=== PATIENT | female | born 1985 | race Caucasian/White ===

== ENCOUNTER 2021-04-28 17:43 | Emergency (ER) | payer OTHER, SELFPAY ==
[2021-04-28 18:05] VITALS: BP 143/82; PULSE 65; RESP 16; TEMP 36.7; O2SAT 99; BMI 33.3
--- NOTE | 2021-04-28 19:14 | ED_ITS ---
HPI - General Adult General Chief complaint: Upper Respiratory Symptoms Stated complaint: sore throat Time Seen by Provider: 04/28/21 19:12 Source: patient Mode of arrival: ambulatory Limitations: no limitations History of Present Illness HPI narrative: Patient presents to ED for sore throat for 1 week. Patient denies any fever, chills, coughing, chest pain, shortness of breath, dizziness, weakness, drooling, or change in voice. Patient denies any runny eyes and runny nose. Related Data Home Medications Medication Instructions Recorded Confirmed cholecalciferol (vitamin D3) 50 50 mcg PO DAILY 01/03/21 mcg (2,000 unit) capsule ibuprofen 800 mg tablet 800 mg PO TID 01/03/21 levothyroxine 137 mcg tablet 0 mcg PO 01/03/21 Previous Rx's Medication Instructions Recorded sumatriptan succinate 25 mg tablet 25 mg PO ONCE PRN #10 tab 01/03/21 Allergies Allergy/AdvReac Type Severity Reaction Status Date / Time No Known Allergies Allergy Verified 04/28/21 19:44 Review of Systems Review of Systems: Yes all other systems are reviewed and are negative Constitutional: Constitutional: Reports as per HPI and Reports no additional constitutional complaints Eyes: Eyes: Reports as per HPI and Reports no additional eye complaints ENT: Reports system reviewed and no additional complaints, except as documented, Reports as per HPI and Reports sore throat Cardiovascular: Cardiovascular: Reports as per HPI and Reports no additional cardiovascular complaints Respiratory: Respiratory: Reports as per HPI and Reports no additional respiratory complaints Gastrointestinal: Gastrointestinal: Reports as per HPI and Reports no additional gastrointestinal complaints Genitourinary: Genitourinary: Reports no additional female genitourinary complaints and Reports as per HPI Musculoskeletal: Musculoskeletal: Reports no additional musculoskeletal complaints and Reports as per HPI Neurologic: Reports system reviewed and no additional complaints, except as documented and Reports as per HPI Psychiatric: Psychiatric: Reports no additional psychiatric complaints and Reports as per HPI [facility] Past Medical History Medical History (Updated 04/29/21 @ 00:01 by Gopal Mtz) No known health problems Social History Social History Advance Directives: No Advance Directives Information Provided: No Physical Exam Vital Signs: Vital Signs: Last Vital Signs Temp 98.1 F 04/28/21 18:05 Pulse 65 04/28/21 18:05 Resp 16 04/28/21 18:05 BP 143/82 H 04/28/21 18:05 Pulse Ox 99 04/28/21 18:05 Body Mass Index 33.3 Const: General: cooperative, healthy appearing, comfortable, no acute distress, well developed, alert, awake and Physically active Orienta tion/consciousness: patient oriented x3 HENMT: Head: Yes normal to inspection, Yes No palpable skull fracture present, Yes normocephalic, Yes atraumatic and No abrasion Throat: Yes posterior oropharynx normal, Yes tonsils normal and Yes uvula midline Eyes: General: appearance normal, both eyes and all related structures Neck: Neck: Yes normal visual inspection, Yes full ROM, Yes no lymphadenopathy, Yes no meningeal signs, Yes trachea midline, Yes supple and No tender Chest: Chest palpation & inspection: normal inspection of the chest and normal palpation of entire chest wall Resp: Effort & Inspection: normal respiratory effort and able to speak in complete sentences Auscultation: clear to auscultation bilaterally Cardio: Jugular venous distension: no JVD Heart sounds: S1 normal heart sound present and S2 normal heart sound present GI: Inspection: Yes normal to inspection and No abdominal wall ecchymosis Palpation (GI): Soft to palpation, not firm, nontender, no guarding and not rigid : General: No CVA tenderness and Yes no CVA tenderness Back/Spine/Pelvis: Back: no CVA tenderness, No CVA tenderness and No back tenderness Skin: General skin exam: no rashes or lesions noted and elasticity normal Neuro: General: patient oriented x3, gait normal, no meningeal signs and CN's II-XI intact bilaterally Cranial nerves: Yes CN's II-XII intact bilaterally Extrem: General: Yes normal to inspection and Yes full ROM Psych: Appearance: grossly normal, well kempt and not disheveled Course Reevaluation(s) Reevaluation #2: Patient will have rapid strep and COVID swab ordered. Patient any distress. Time: 19:37 Reevaluation #3: Rapid strep COVID-19 swab negative. Viral pharyngitis. Patient is safe for discharge Time: 20:01 Medical Decision Making MDM Narrative Medical decision making narrative: Viral pharyngitis Lab Data Labs: Lab Results 04/28/21 04/28/21 Range/Units 19:16 19:16 COVID-19 (PAULA) Negative (Negative) COVID-19 Clin Com See Note S. pyogenes GrpA CARMEN Negative (Negative) Discharge Plan Discharge Clinical Impression: Acute viral pharyngitis Patient Disposition: Home, Self-Care Instructions: Pharyngitis (ED) Additional Instructions: Your COVID swab and strep test came back negative. You can take [id number] cepacol lozanges for pain relief. Return to the ED immediately for drooling, shortness of breath, neck pain, neck swelling, chest pain, shortness of breath, fever, chills, change in voice, headache, dizziness, or any other concerning symptoms. You can take [id number] Motrin or Aleve for pain relief Prescriptions: No Action levothyroxine 137 mcg tablet 0 mcg PO RF: 0 cholecalciferol (vitamin D3) 50 mcg (2,000 unit) capsule 50 mcg PO DAILY RF: 0 ibuprofen 800 mg tablet 800 mg PO TID RF: 0 sumatriptan succinate 25 mg tablet 25 mg PO ONCE PRN (Reason: migraine headache) Qty: 10 RF: 0 Interventions: ED Discharge Assessment Last Done: 04/28/21 20:21 Discharge Date/Time: 04/28/21 20:22 Print Language: Indonesian
[2021-04-28 19:45] LABS: Strep A Nucleic Acid Negative (Negative)
[2021-04-28 19:46] LABS: COVID-19 Test Negative (Negative); IDNOW Serial# 9DD0AD1C
== END 2021-04-28 20:22 | disposition home or self-care (01) ==
PROVIDERS: Physician Assistant; Emergency Provider Internal Medicine; PCP Internal Medicine
DX: J02.8 Acute pharyngitis due to other specified organisms (principal); Z20.822 Contact with and (suspected) exposure to COVID-19
CPT/HCPCS: 36415; 87635; 87651; 99283; 99284

== ENCOUNTER 2021-10-28 10:46 | Outpatient (REF) | payer OTHER, SELFPAY ==
--- NOTE | ~2021-10-28 | XR_ITS ---
EXAMINATION: XR ANKLE, RIGHT CLINICAL INFORMATION: Right ankle sprain. COMPARISON: None TECHNIQUE: AP, lateral, and mortise views of the right ankle. FINDINGS: Mild to moderate soft tissue swelling is seen more pronounced medially. The ankle joint and mortise are intact. There is no acute fracture or dislocation. The tarsal bones are normally aligned. There is a very small plantar calcaneal spur. XR/XR ankle RT min 3V IMPRESSION: 1. Mild to moderate soft tissue swelling, more pronounced medially without acute underlying osseous abnormality. 2. Very small degenerative plantar calcaneal spur.
== END 2021-10-28 10:47 | disposition home or self-care (01) ==
LOC: HO.HMGCX 10:46
PROVIDERS: PCP Internal Medicine; Visit Provider Internal Medicine
DX: S93.401A Sprain of unspecified ligament of right ankle, initial encounter (principal); X58.XXXA Exposure to other specified factors, initial encounter; Y93.9 Activity, unspecified; Y92.9 Unspecified place or not applicable; Y99.9 Unspecified external cause status
CPT/HCPCS: 73610

== ENCOUNTER 2022-12-25 18:24 | Emergency (ER) | payer OTHER, SELFPAY ==
[2022-12-25 18:31] VITALS: BP 135/87; PULSE 82; RESP 18; TEMP 36.3; O2SAT 96; BMI 36.6
--- NOTE | 2022-12-25 18:31 | ED_ITS ---
HPI - General Adult General Chief complaint: Back Pain/Injury <Lindsay Cummings CNP - Last Filed: 12/25/22 18:41> Stated complaint: back pain and right side chest pain <Lindsay Cummings CNP - Last Filed: 12/25/22 18:41> Time Seen by Provider: 12/25/22 22:52 <Lindsay Cummings CNP - Last Filed: 12/25/22 18:41> Source: patient <Elías Lindquist MD - Last Filed: 12/25/22 23:22> Mode of arrival: ambulatory <Elías Lindquist MD - Last Filed: 12/25/22 23:22> History of Present Illness HPI narrative: Patient slipped on a wet mat and fell backwards 4 days ago at work , since then complaining of pain in the right upper back no shortness of breath no head injury no loss of consciousness no other injuries <Elías Lindquist MD - Last Filed: 12/25/22 23:22> Related Data Home medications: Home Medications Medication Instructions Recorded Confirmed cholecalciferol (vitamin D3) 50 50 mcg PO DAILY 01/03/21 mcg (2,000 unit) capsule levothyroxine 137 mcg tablet 0 mcg PO 01/03/21 Previous Rx's Medication Instructions Recorded sumatriptan succinate 25 mg tablet 25 mg PO ONCE PRN migraine 01/03/21 headache #10 tabs cyclobenzaprine 10 mg tablet 10 mg PO BEDTIME #14 tabs 12/23/22 meloxicam 15 mg tablet 15 mg PO DAILY #14 tabs 12/23/22 cyclobenzaprine 10 mg tablet 10 mg PO Q8H #20 tabs 12/25/22 ibuprofen 600 mg tablet 600 mg PO Q6H PRN fever or pain 12/25/22 #30 tabs <Lindsay Cummings CNP - Last Filed: 12/25/22 18:41> Allergies/adverse reactions: Allergies Allergy/AdvReac Type Severity Reaction Status Date / Time No Known Allergies Allergy Verified 12/23/22 15:37 <Lindsay Cummings CNP - Last Filed: 12/25/22 18:41> Review of Systems Review of Systems: Yes all other systems are reviewed and are negative <Elías Lindquist MD - Last Filed: 12/25/22 23:22> [facility] Past Medical History Medical History: Medical History No known health problems <Lindsay Cummings MALCOLM - Last Filed: 12/25/22 18:41> Social History Social History: Social History Patient Tobacco Use Status: Never used Tobacco Advance Directives: No <Lindsay Cummings PEARL CUTTER - Last Filed: 12/25/22 18:41> Physical Exam ED Vital Signs: Vital Signs - 24 hr 12/25/22 18:31 Temperature 97.4 F Pulse Rate 82 Respiratory Rate 18 Blood Pressure 135/87 Pulse Oximetry 96 Oxygen Delivery Method Room Air BMI result Body Mass Index 36.6 <Lindsay CummingsMALCOLM - Last Filed: 12/25/22 18:41> Vital Signs - 24 hr 12/25/22 18:31 Temperature 97.4 F Pulse Rate 82 Respiratory Rate 18 Blood Pressure 135/87 Pulse Oximetry 96 Oxygen Delivery Method Room Air BMI result Body Mass Index 36.6 <Elías Lindquist MD - Last Filed: 12/25/22 23:22> Appearance: Alert. Oriented X3. No acute distress. Eyes: PERRLA, No Nystagmus ENT: Pharynx normal. Oral Mucosa moist Neck: Normal inspection. Neck supple. CVS: Normal heart rate and rhythm. Pulses normal. Respiratory: No respiratory distress. Equal air entry bilateral, no wheezing/rales/rhonchi Abdomen: Soft and nontender. Skin: Skin warm and dry. Normal skin color. Normal skin turgor. Extremities: No lower extremity edema. No calf tenderness back: Diffuse upper back tenderness in the right rhomboids Neuro: Oriented X 3. No motor deficit. No sensory deficit. <Elías Lindquist MD - Last Filed: 12/25/22 23:22> Course Course Course Narrative: This is an RME: Additional HPI, ROS, PE not included below will be deferred to primary provider. Patient is a 37-year-old female who presents to the emergency department for evaluation pain. She reports right upper chest pain, with onset 1 week ago after a mechanical fall at work. Diffuse back pain; bilateral upper and lower, no area feeling worse than another x 1 week. Was evaluated at urgent care, 2 days ago, received prescription for cyclobenzaprine and meloxicam with only some relief. Did not take meloxicam today. Pain not worsening, but here because not resolving. Denies URI symptoms, shortness of breath, fevers, chills, nausea, vomiting, dysuria, urinary frequency, leg pain/redness/swelling. Denies possibility of Plan: ketorolac IM <Lindsay Cummings CNP - Last Filed: 12/25/22 18:41> Medications Administered Discontinued Medications Generic Name Dose Route Start Last Admin Trade Name Freq PRN Reason Stop Dose Admin Ketorolac Tromethamine 30 mg 12/25/22 18:40 12/25/22 22:02 Ketorolac Tromethamine 30 Mg/Ml Vial IM 12/25/22 18:41 30 mg ONCE ONE Administration <Lindsay Cummings CNP - Last Filed: 12/25/22 18:41> Medications Administered Discontinued Medications Generic Name Dose Route Start Last Admin Trade Name Freq PRN Reason Stop Dose Admin Ketorolac Tromethamine 30 mg 12/25/22 18:40 12/25/22 22:02 Ketorolac Tromethamine 30 Mg/Ml Vial IM 12/25/22 18:41 30 mg ONCE ONE Administration <Elías Lindquist MD - Last Filed: 12/25/22 23:22> Medical Decision Making Medical Decision Making MDM Narrative: Patient status post mechanical fall with upper back contusion discharge patient home on ibuprofen and Flexeril <Elías Lindquist MD - Last Filed: 12/25/22 23:22> Discharge Plan Discharge Clinical Impression: Thoracic back pain <Lindsay Cummings CNP - Last Filed: 12/25/22 18:41> Patient Disposition: Home, Self-Care <Lindsay Cummings CNP - Last Filed: 12/25/22 18:41> Instructions: Thoracic Pain (ED) <Lindsay Cummings CNP - Last Filed: 12/25/22 18:41> Additional Instructions: Take pain medication as prescribed Ice pack Rest <Lindsay Cummings CNP - Last Filed: 12/25/22 18:41> Prescriptions: New cyclobenzaprine 10 mg tablet 10 mg PO Q8H Qty: 20 0RF ibuprofen 600 mg tablet 600 mg PO Q6H PRN (Reason: fever or pain) Qty: 30 0RF No Action levothyroxine 137 mcg tablet 0 mcg PO cholecalciferol (vitamin D3) 50 mcg (2,000 unit) capsule 50 mcg PO DAILY sumatriptan succinate 25 mg tablet 25 mg PO ONCE PRN (Reason: migraine headache) Qty: 10 0RF Rx Instructions: may take a second dose if no relief after one hour. Do not take more than 4 tablets per day. meloxicam 15 mg tablet 15 mg PO DAILY Qty: 14 0RF cyclobenzaprine 10 mg tablet 10 mg PO BEDTIME Qty: 14 0RF <Lindsay Cummings CNP - Last Filed: 12/25/22 18:41> Stand Alone Forms: Work/School Release <Lindsay Cummings CNP - Last Filed: 12/25/22 18:41>
[2022-12-25] MEDS: Ketorolac Tromethamine 30 MG/ML VIAL IM (22:02)
[2022-12-25] MEDS: Cyclobenzaprine HCl 10 MG TABLET PO (23:40)
[2022-12-25 23:47] VITALS: BP 109/69; PULSE 79; RESP 16; O2SAT 98
--- NOTE | 2022-12-25 23:50 | PC.NURSE ---
Pt a&o, no sob or chest pain, Pt medicated per Mar, Reviewed discharge instructions with pt. pt verbalized understanding.
== END 2022-12-25 23:51 | disposition home or self-care (01) ==
PROVIDERS: Emergency Provider Internal Medicine; PCP Internal Medicine
DX: M54.50 Low back pain, unspecified (principal); M54.6 Pain in thoracic spine; Z79.899 Other long term (current) drug therapy
CPT/HCPCS: 96372; 99284; J1885

== ENCOUNTER 2023-12-29 10:56 | Outpatient (AMB) | payer OTHER, SELFPAY ==
--- NOTE | 2023-12-29 11:01 | AM.OFFWIN_ITS ---
Intake Vital Signs 12/29/23 11:02 Weight 223 lb BP 110/80 Blood Pressure Location Lt brachial Position Sitting Pulse 72 Pulse Source Pulse Oximeter Pulse Oximetry (%) 99 Oxygen Delivery Method Room Air Intake Visit Reasons: EP RT side upper body/arm pain (lobby) Intake Note: Patient here for severe upper back pain which radiates to the shoulder and chest which started 3 days ago. Patient Tobacco Use Status: Never used Tobacco Allergies No Known Allergies Allergy (Verified 12/29/23 11:41) Medication List - Last Reconciled 12/29/23 by JADON Steve cholecalciferol (vitamin D3) 50 mcg PO DAILY ibuprofen 600 mg PO Q6H PRN levothyroxine 0 mcg PO Do you need a note to return to daycare/school/sports/work: No HPI HPI Comments History of Present Illness Details Patient is a 38-year-old female in today for a sick visit. She states that for the past several days she has developed symptoms of right shoulder pain, and right hand pain. Denies trauma to the area. States that she does sleep on her right side but has not for the past week. Has no history of these symptoms. Denies chest pain, shortness a breath, dizziness, numbness, nausea, vomiting, diarrhea. [facility] Medical History No known health problems Social History Patient Tobacco Use Status: Never used Tobacco Review of Systems Const All systems reviewed & are unremarkable except as noted in HPI and below ENT Reports neck pain Musc Reports arthralgias (Right hand), Reports neck pain and Reports stiffness Physical Exam Vital Signs: Last Vital Signs Pulse 72 12/29/23 11:02 BP 110/80 12/29/23 11:02 Pulse Ox 99 12/29/23 11:02 Oxygen Delivery Method Room Air 12/29/23 11:02 Vital signs reviewed stable Const Other: Appearance: Alert.? Oriented X3.? No acute distress.? Head: Normocephalic, atraumatic, Neck: Normal inspection.? Neck supple.? CVS: Normal heart rate and rhythm.? Pulses normal.? Respiratory: No respiratory distress.? Breath sounds normal.? Skin: Skin warm and dry.? Normal skin color.? Normal skin turgor.? Extremities: No lower extremity edema.? No calf ttp. 5/5 strength to bilateral upper and lower extremities. + Tenderness and edema 1st and 2nd metacarpal right hand. Back: No midline tenderness, no C-spine tenderness, full range of motion, + right trapezius tenderness Neuro: Oriented X 3.? No motor deficit.? No sensory deficit. CN 2-12 intact Assessment & Plan Assessment & Plan (1) Right hand pain: Comment: Will obtain x-ray. Patient will be given meloxicam to be taken as directed. Patient could also utilize ice and rest. Code(s): M79.641 - Pain in right hand Plan: Take your medications as prescribed. If you were prescribed antibiotics today, it is important that you take your medication to their entirety, do not skip any doses, do not finish them early. Follow-up with your primary care provider this week. Return to the emergency department with new or worsening symptoms. Such as fevers, chills, chest pain, shortness of breath, nausea, vomiting, dizziness, headache, vision changes, lethargy In case of emergency call 911 (2) Trapezius strain: Comment: Patient given meloxicam and cyclobenzaprine to be taken as directed. Code(s): S46.819A - Strain of other muscles, fascia and tendons at shoulder and upper arm level, unspecified arm, initial encounter Qualifiers: Encounter type: initial encounter Laterality: right Qualified Code(s): S46.811A - Strain of other muscles, fascia and tendons at shoulder and upper arm level, right arm, initial encounter Plan: Take your medications as prescribed. If you were prescribed antibiotics today, it is important that you take your medication to their entirety, do not skip any doses, do not finish them early. Follow-up with your primary care provider this week. Return to the emergency department with new or worsening symptoms. Such as fevers, chills, chest pain, shortness of breath, nausea, vomiting, dizziness, headache, vision changes, lethargy In case of emergency call 911 Plan Follow-up with PCP Medications: New cyclobenzaprine Take only before bedtime. 5 mg PO BEDTIME PRN 7 tabs 0RF muscle spasm meloxicam Do not combine with other NSAIDS 15 mg PO DAILY PRN 14 tabs 0RF pain Discontinued ibuprofen Discontinued Reason: Doctor's Order 600 mg PO Q6H PRN 30 tabs 0RF fever or pain Coding Level of Care Code Est Pt Level 3 (54509) Diagnoses Right hand pain M79.641 Strain of right trapezius muscle, initial encounter S46.811A Encounter type: initial encounter Laterality: right
[2023-12-29 11:02] VITALS: BP 110/80; PULSE 72; O2SAT 99
== END 2023-12-29 12:42 | disposition home or self-care (01) ==
PROVIDERS: PCP Internal Medicine; Visit Provider Nurse Practitioner Primary Care
DX: M79.641 Pain in right hand (principal); S46.811A Strain of other muscles, fascia and tendons at shoulder and upper arm level, right arm, initial encounter
CPT/HCPCS: 99213

== ENCOUNTER 2023-12-29 11:24 | Outpatient (REF) | payer OTHER, SELFPAY ==
--- NOTE | ~2023-12-29 | XR_ITS ---
EXAMINATION: XR HAND, RIGHT CLINICAL INFORMATION: Right hand pain. COMPARISON: Right hand radiographs dated 05/07/2009. TECHNIQUE: PA, lateral, and oblique views of the right hand. FINDINGS: The bones and soft tissues are normal. No fracture. Alignment is anatomic. Joint spaces are maintained. No erosions or soft tissue calcifications. XR/XR hand RT min 3V IMPRESSION: Unremarkable examination.
== END 2023-12-29 11:25 | disposition home or self-care (01) ==
LOC: HO.HMGCX 11:24
PROVIDERS: Visit Provider Nurse Practitioner Primary Care
DX: M79.641 Pain in right hand (principal)
CPT/HCPCS: 73130

== ENCOUNTER 2024-01-01 12:42 | Emergency (ER) | payer OTHER, SELFPAY ==
--- NOTE | ~2024-01-01 | XR_ITS ---
EXAMINATION: XR CHEST CLINICAL INFORMATION: Right sided chest pain. COMPARISON: Chest radiograph dated 07/15/2009. TECHNIQUE: 2 views of the chest were obtained. FINDINGS: Heart size is normal. The lungs are clear. There is no pleural effusion or pneumothorax. No acute osseous abnormality. XR/XR chest 2V IMPRESSION: No acute cardiopulmonary disease.
[2024-01-01 13:18] VITALS: BP 149/97; PULSE 81; RESP 18; TEMP 36.7; O2SAT 99; BMI 32.3
--- NOTE | 2024-01-01 13:21 | ED.CHESTPAIN ---
HPI - Chest Pain General Chief Complaint: Back Pain/Injury Stated Complaint: R side CP pain/Back pain/R arm pain Time Seen by Provider: 01/01/24 15:13 History of Present Illness HPI narrative: Patient complains of right trapezius and some mild right lower neck pain which radiates to the upper chest area on the right side, there is no other chest pain there is no shortness of breath there is no exertional symptoms, pain is continuous and worse with movement, there is no shortness breath no difficulty breathing no radiation of the pain no loss of sensation no muscle weakness no changes to bowel or bladder, no skin rash Related Data Home Medications Medication Instructions Recorded Confirmed cholecalciferol (vitamin D3) 50 50 mcg PO DAILY 01/03/21 12/29/23 mcg (2,000 unit) capsule levothyroxine 137 mcg tablet 0 mcg PO 01/03/21 12/29/23 Previous Rx's Medication Instructions Recorded cyclobenzaprine 5 mg tablet 5 mg PO BEDTIME PRN muscle spasm 12/29/23 #7 tabs meloxicam 15 mg tablet 15 mg PO DAILY PRN pain #14 tabs 12/29/23 ibuprofen 600 mg tablet 600 mg PO Q6H PRN pain #20 tabs 01/01/24 oxycodone 5 mg tablet 5 mg PO Q6H PRN pain #14 tabs 01/01/24 Allergies Allergy/AdvReac Type Severity Reaction Status Date / Time No Known Allergies Allergy Verified 01/01/24 13:24 [facility] Past Medical History Source: nursing notes reviewed Medical History No known health problems Social History Social History Patient Tobacco Use Status: Never used Tobacco Advance Directives: No Advance Directives Information Provided: No Physical Exam Vital Signs: Vital Signs: Last Vital Signs Temp 98.4 F 01/01/24 14:50 Pulse 65 01/01/24 14:50 Resp 16 01/01/24 14:50 BP 142/75 H 01/01/24 14:50 Pulse Ox 100 01/01/24 14:50 O2 Del Method Room Air 01/01/24 14:50 BMI result Body Mass Index 32.3 General appearance no acute distress Head is normocephalic atraumatic The neck had very mild right lateral tenderness, the most tender area is the right trapezius, there is no focal bony tenderness The skin of the right neck and trapezius is all normal no redness no rash The chest is clear to auscultation full symmetric equal breath sounds The chest wall is non tender Heart no murmur Abdomen soft nontender Extremities full range motion x4 including right upper extremity which has full range of motion in the shoulder and all joints in his neurovascular intact distal with 5/5 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 Patient is a 38-year-old female who presents emergency department for evaluation of Right upper back pain that radiates into the right upper chest liver on with onset 1 week ago without any precipitating injury. Denies shortness of breath, nausea, vomiting, abdominal pain, dysuria, constipation, diarrhea, fevers, chills. Was seen at clinic 4 days ago, RX's muscle relaxer and an arthritis medicine (after RX of hand), but denies any relief. Plan: labs, urinalysis CBC chemistry troponin all normal, hCG negative Urinalysis was contaminated, patient had no symptoms of urinary tract infection in his urinating normally , no dysuria no frequency no burning no nausea vomiting or fever Chest x-ray was normal, no pneumothorax no widened aorta EKG was a normal sinus rhythm with a rate of 67, no acute ST changes no acute ischemic changes Patient with likely strained trapezius muscle is discharged with analgesics Medical Decision Making Lab Data 01/01/24 13:35 01/01/24 13:34 Labs: Lab Results 01/01/24 01/01/24 01/01/24 Range/Units 13:34 13:35 15:03 WBC 10.0 (4.8-10.8) X10*3/uL RBC 4.67 (4.20-5.50) X10*6/uL Hgb 13.5 (12.0-16.0) g/dl Hct 39.9 (37.0-47.0) % MCV 85.4 (80.0-98.0) fL MCH 28.9 (27.0-33.0) pg MCHC 33.8 (31.0-35.0) g/dl RDW 13.2 (11.0-16.0) % Plt Count 300 (160-400) X10*3/uL MPV 9.8 (9.4-12.3) fL Immature Gran % (Auto) 1.1 H (0.0-0.4) % Neut % (Auto) 60.7 (45-73) % Lymph % (Auto) 27.0 (20-40) % [place] % (Auto) 7.5 (2-11) % Eos % (Auto) 3.0 (0-4) % Baso % (Auto) 0.7 (0-2) % Lymph # (Auto) 2.7 (1.2-4.9) X10*3/uL [place] # (Auto) 0.8 (0.1-1.2) X10*3/uL Eos # (Auto) 0.3 (0.0-0.4) X10*3/uL Baso # (Auto) 0.1 (0.0-0.2) X10*3/uL Abs Immat Gran (auto) 0.11 H (0.00-0.03) X10*3/uL Absolute Neuts (auto) 6.1 (2.0-8.3) x10*3/uL Absolute Nucleated RBC 0.000 (0.0-0.012) X10*3/uL Nucleated RBC % (auto) 0.0 (0.0-0.2) /100WBC Sodium 139 (135-145) mmol/L Potassium 4.0 (3.3-5.1) mmol/L Chloride 107 (96-108) mmol/L Carbon Dioxide 22 (22-29) mmol/L Anion Gap 14 (12-20) BUN 12 (9-16) mg/dL Creatinine 0.78 (0.5-1.4) mg/dL Estim Creat Clear Calc 110.9 Estimated GFR > 60 Random Glucose 90 (60-115) mg/dL Calcium 9.3 (8.4-10.2) mg/dL Total Bilirubin 0.4 (0.0-1.0) mg/dL AST 9 (5-31) U/L ALT 7 (0-31) U/L Alkaline Phosphatase 89 (39-117) U/L Troponin I High Sens < 2.7 (<3.5-17.0) ng/L Total Protein 7.6 (6.5-8.0) g/dL Albumin 4.1 (3.5-5.0) g/dL Lipase 21 (8-78) U/L Beta HCG, Quant < 2 mIU/mL Urine Color Yellow Urine Appearance Cloudy Urine pH 5.5 (5.0-9.0) Ur Specific [place] 1.010 (1.005-1.025) Urine Protein Negative (Neg-Trace) mg/dL Urine Glucose (UA) Negative (Negative) mg/dL Urine Ketones Negative (Negative) mg/dL Urine Blood Negative (Negative) Urine Nitrite Negative (Negative) Ur Leukocyte Esterase Large (3+) H (Negative) Urine RBC 0-2 (0-2) /HPF Urine WBC 21-50 H (0-5) /HPF Ur Squamous Epith Cells 3-5 (0-2) /HPF Urine Bacteria 2+ (None Seen) Hyaline Casts 0-2 (0-2) /LPF Discharge Plan Discharge Clinical Impression: Trapezius strain Patient Disposition: Home, Self-Care Additional Instructions: Pain is likely from strained right trapezius muscle Lab tests were normal including heart test , test was negative EKG was normal Chest x-ray was normal Use medications as needed, oxycodone is narcotics so no driving for 6 hours after taking it can cause drowsiness or dizziness Follow with primary doctor Massage, chiropractor are sometimes very helpful Return any time if worse Prescriptions: New oxycodone 5 mg tablet 5 mg PO Q6H PRN (Reason: pain) Qty: 14 0RF Rx Instructions: Partial Fill upon patient request. ibuprofen 600 mg tablet 600 mg PO Q6H PRN (Reason: pain) Qty: 20 0RF No Action levothyroxine 137 mcg tablet 0 mcg PO cholecalciferol (vitamin D3) 50 mcg (2,000 unit) capsule 50 mcg PO DAILY meloxicam 15 mg tablet 15 mg PO DAILY PRN (Reason: pain) Qty: 14 0RF Rx Instructions: Do not combine with other NSAIDS cyclobenzaprine 5 mg tablet 5 mg PO BEDTIME PRN (Reason: muscle spasm) Qty: 7 0RF Rx Instructions: Take only before bedtime.
--- NOTE | 2024-01-01 13:24 | ECG_ITS ---
Test Reason : CP Blood Pressure : / mmHG Vent. Rate : 067 BPM Atrial Rate : 067 BPM P-R Int : 188 ms QRS Dur : 086 ms QT Int : 402 ms P-R-T Axes : 018 038 014 degrees QTc Int : 424 ms Normal sinus rhythm Normal ECG When compared with ECG of 19-AUG-2018 19:39, No significant change was found Referred By: Lindsay Cummings Electronically Signed By:SUKI GRULLON MD
[2024-01-01 13:38] LABS: MANUAL DIFF FLAG NO
[2024-01-01 13:41] LABS: Basophils Absolute Auto 0.1 X10*3/uL (0.0-0.2); Basophils Percent Auto 0.7 % (0-2); Eosinophils Absolute Auto 0.3 X10*3/uL (0.0-0.4); Hematocrit 39.9 % (37.0-47.0); Hemoglobin 13.5 g/dl (12.0-16.0); Imm Gran Abs Auto 0.11 X10*3/uL (0.00-0.03); Imm Gran Pct Auto 1.1 % (0.0-0.4); Lymphocytes Absolute Auto 2.7 X10*3/uL (1.2-4.9); Mean Corpuscular HGB Conc 33.8 g/dl (31.0-35.0); Mean Corpuscular Hemoglobin 28.9 pg (27.0-33.0); Mean Corpuscular Volume 85.4 fL (80.0-98.0); Mean Platelet Volume 9.8 fL (9.4-12.3); Monocytes Absolute Auto 0.8 X10*3/uL (0.1-1.2); Monocytes Percent Auto 7.5 % (2-11); Neutrophils Absolute Auto 6.1 x10*3/uL (2.0-8.3); Neutrophils Percent Auto 60.7 % (45-73); Platelet Count 300 X10*3/uL (160-400); Red Blood Count 4.67 X10*6/uL (4.20-5.50); Red Cell Distribution Width 13.2 % (11.0-16.0)
[2024-01-01 14:01] LABS: Alanine Aminotransferase 7 U/L (0-31); Albumin Level 4.1 g/dL (3.5-5.0); Alkaline Phosphatase 89 U/L (39-117); Anion Gap 14 (12-20); Aspartate Amino Transferase 9 U/L (5-31); Bilirubin Total 0.4 mg/dL (0.0-1.0); Blood Urea Nitrogen 12 mg/dL (9-16); Calcium 9.3 mg/dL (8.4-10.2); Carbon Dioxide 22 mmol/L (22-29); Chloride 107 mmol/L (96-108); Creatinine Clr Calc Pharmacy 110.9; Estimated Glomerular Filt Rate > 60; Glucose Random 90 mg/dL (60-115); Lipase 21 U/L (8-78); Sodium 139 mmol/L (135-145); Total Protein 7.6 g/dL (6.5-8.0)
[2024-01-01 14:03] LABS: Troponin-I High Sensitivity < 2.7 ng/L (<3.5-17.0)
[2024-01-01 14:04] LABS: HCG Quantitative < 2 mIU/mL
[2024-01-01 14:50] VITALS: BP 142/75; PULSE 65; RESP 16; TEMP 36.9; O2SAT 100
[2024-01-01 15:13] LABS: Appearance Urine Cloudy; Color Urine Yellow; Glucose Urine UA Negative (Negative); Leukocyte Esterase Urine Large (3+) (Negative); Nitrite Urine Negative (Negative); PH 5.5 (5.0-9.0); UMIC TRIGGER UACC YES; Urine Blood Negative (Negative); Urine Ketones Negative (Negative); Urine Protein Negative (Neg-Trace)
[2024-01-01 15:20] LABS: Bacteria Urine 2+ (None Seen); Hyaline Casts Urine 0-2 /LPF (0-2); UACC Culture Trigger YES; WBC Urine 21-50 /HPF (0-5)
[2024-01-01 15:22] LABS: RBC Urine 0-2 /HPF (0-2)
[2024-01-01 18:13] VITALS: BP 0/0; PULSE 0; RESP 0; TEMP -17.7; TEMP 0
== END 2024-01-01 18:13 | disposition home or self-care (01) ==
PROVIDERS: Nurse Practitioner Family; Emergency Provider Emergency Medicine
DX: S46.811A Strain of other muscles, fascia and tendons at shoulder and upper arm level, right arm, initial encounter (principal); X58.XXXA Exposure to other specified factors, initial encounter; Y93.9 Activity, unspecified; Y92.9 Unspecified place or not applicable; Y99.9 Unspecified external cause status
CPT/HCPCS: 36415; 71046; 80053; 81001; 83690; 84484; 84702; 85025; 87086; 93005; 99283

== ENCOUNTER → 2024-01-01 13:24 | Outpatient (BNV) | payer OTHER, SELFPAY | PROVIDERS: Emergency Provider Emergency Medicine; Visit Provider Internal Medicine Cardiovascular Disease | DX: R07.9 Chest pain, unspecified (principal) | CPT/HCPCS: 93010 ==

== ENCOUNTER 2024-07-09 19:22 | Emergency (ER) | payer MEDICAID, SELFPAY ==
--- NOTE | ~2024-07-09 | XR_ITS ---
EXAMINATION: XR CHEST CLINICAL INFORMATION: Chest pain for one week COMPARISON: Chest radiograph dated 01/01/2024 TECHNIQUE: 2 views of the chest were obtained. FINDINGS: Multiple wires project over the mediastinum and right hilum. Low lung volumes. No significant abnormality is noted involving the heart, lungs, mediastinum, bony thorax or soft tissues. XR/XR chest 2V IMPRESSION: No acute cardiopulmonary process. Electronically signed by: Dolores Fitch MD 07/09/2024 08:44 PM EDT
--- NOTE | 2024-07-09 19:23 | ECG_ITS ---
Test Reason : CHEST PAIN Blood Pressure : / mmHG Vent. Rate : 069 BPM Atrial Rate : 069 BPM P-R Int : 190 ms QRS Dur : 080 ms QT Int : 404 ms P-R-T Axes : 023 030 019 degrees QTc Int : 432 ms Normal sinus rhythm Normal ECG When compared with ECG of 01-JAN-2024 13:29, No significant change was found Referred By: Generic ED Physician Electronically Signed By:YAHAIRA OATES
[2024-07-09 19:39] VITALS: BP 129/75; PULSE 75; RESP 16; TEMP 36.7; O2SAT 99; BMI 38.6
--- NOTE | 2024-07-09 19:39 | ED_ITS ---
HPI - General Adult General Chief complaint: Chest Pain Stated complaint: chest pain Time Seen by Provider: 07/09/24 20:48 Source: patient Mode of arrival: ambulatory Limitations: no limitations History of Present Illness ED Provider: simon DILLON narrative: Patient otherwise healthy complaining of pain in the left 2nd intercostal space for last few days gets worse with movement and palpation Related Data Home Medications ?Medication ?Instructions ?Recorded ?Confirmed cholecalciferol (vitamin D3) 50 50 mcg PO DAILY 01/03/21 12/29/23 mcg (2,000 unit) capsule levothyroxine 137 mcg tablet 0 mcg PO 01/03/21 12/29/23 Previous Rx's ?Medication ?Instructions ?Recorded cyclobenzaprine 5 mg tablet 5 mg PO BEDTIME PRN muscle spasm 12/29/23 #7 tabs meloxicam 15 mg tablet 15 mg PO DAILY PRN pain #14 tabs 12/29/23 ibuprofen 600 mg tablet 600 mg PO Q6H PRN pain #20 tabs 01/01/24 oxycodone 5 mg tablet 5 mg PO Q6H PRN pain #14 tabs 01/01/24 ibuprofen 600 mg tablet 600 mg PO Q6H PRN fever or pain 07/09/24 #30 tabs tramadol 50 mg tablet 50 mg PO Q6H PRN pain #20 tabs 07/09/24 Allergies Allergy/AdvReac Type Severity Reaction Status Date / Time No Known Allergies Allergy Verified 07/09/24 19:43 Review of Systems 2 Review of Systems: Yes all other systems are reviewed and are negative PMFSH Past Medical History Medical History No known health problems Social History Social History Patient Tobacco Use Status: Never used Tobacco Advance Directives: No Advance Directives Information Provided: No Do you have a plan to hurt others: No Plan Physical Exam ED Vital Signs: Vital Signs - 24 hr 07/09/24 19:39 Temperature 98.1 F Pulse Rate 75 Respiratory Rate 16 Blood Pressure 129/75 Pulse Oximetry 99 Oxygen Delivery Method Room Air BMI result Body Mass Index 38.6 Appearance: Alert. Oriented X3. No acute distress. ENT: Pharynx normal. Oral Mucosa moist Neck: Normal inspection. Neck supple. CVS: Normal heart rate and rhythm. Pulses normal. Respiratory: No respiratory distress. Equal air entry bilateral, no wheezing/rales/rhonchi left 2nd intercostal space tenderness to palpation Abdomen: Soft and nontender. Bowel sounds are present, no mass palpable, no CVA tenderness Skin: Skin warm and dry. Normal skin color. Normal skin turgor. Extremities: No lower extremity edema. No calf tenderness Neuro: Oriented X 3. Course Course Course Narrative: This is a rapid medical exam performed by Mukund Warren NP: Additional HPI, ROS, PE not included below will be deferred to primary provider. Patient is a 38-year-old female presenting to the ED with complaint of left upper chest pain for the past week. States pain is intermittent. Plan: EKG, labs,CXR Medications Administered Discontinued Medications Generic Name Dose Route Start Last Admin Trade Name Freq PRN Reason Stop Dose Admin Ibuprofen 600 mg 07/09/24 21:30 07/09/24 21:37 Ibuprofen 600 Mg Tablet PO 07/09/24 21:31 600 mg ONCE ONE Administration Tramadol HCl 50 mg 07/09/24 21:30 07/09/24 21:38 Tramadol Hcl 50 Mg Tablet PO 07/09/24 21:31 50 mg ONCE ONE Administration Medical Decision Making Medical Decision Making [facility] Narrative: Patient with left costal cartilage tenderness clinically costochondritis labs were stable chest negative will discharge patient home Differential Diagnosis Differential Diagnoses: The differential diagnosis associated with the presentation includes Costochondritis/history Lab Data [facility] Lab Attestation statement: I reviewed the patient's lab results. 07/09/24 19:40 07/09/24 19:40 Labs: Lab Results 07/09/24 Range/Units 19:40 WBC 11.9 H (4.8-10.8) X10*3/uL RBC 4.29 (4.20-5.50) X10*6/uL Hgb 12.5 (12.0-16.0) g/dl Hct 36.8 L (37.0-47.0) % MCV 85.8 (80.0-98.0) fL MCH 29.1 (27.0-33.0) pg MCHC 34.0 (31.0-35.0) g/dl RDW 13.1 (11.0-16.0) % Plt Count 331 (160-400) X10*3/uL MPV 9.7 (9.4-12.3) fL Immature Gran % (Auto) 0.8 H (0.0-0.4) % Neut % (Auto) 62.9 (45-73) % Lymph % (Auto) 26.5 (20-40) % [place] % (Auto) 6.9 (2-11) % Eos % (Auto) 2.4 (0-4) % Baso % (Auto) 0.5 (0-2) % Lymph # (Auto) 3.2 (1.2-4.9) X10*3/uL [place] # (Auto) 0.8 (0.1-1.2) X10*3/uL Eos # (Auto) 0.3 (0.0-0.4) X10*3/uL Baso # (Auto) 0.1 (0.0-0.2) X10*3/uL Abs Immat Gran (auto) 0.10 H (0.00-0.03) X10*3/uL Absolute Neuts (auto) 7.5 (2.0-8.3) x10*3/uL Absolute Nucleated RBC 0.000 (0.0-0.012) X10*3/uL Nucleated RBC % (auto) 0.0 (0.0-0.2) /100WBC Sodium 138 (135-145) mmol/L Potassium 3.9 (3.3-5.1) mmol/L Chloride 105 (96-108) mmol/L Carbon Dioxide 23 (22-29) mmol/L Anion Gap 14 (12-20) BUN 12 (9-16) mg/dL Creatinine 0.86 (0.5-1.4) mg/dL Estim Creat Clear Calc 106.8 Estimated GFR > 60 Random Glucose 96 (60-115) mg/dL Calcium 9.9 D (8.4-10.2) mg/dL Total Bilirubin 0.3 (0.0-1.0) mg/dL AST 14 (5-31) U/L ALT 10 (0-31) U/L Alkaline Phosphatase 88 (39-117) U/L Troponin I High Sens < 2.7 (<3.5-17.0) ng/L Total Protein 7.5 (6.5-8.0) g/dL Albumin 4.1 (3.5-5.0) g/dL Beta HCG, Quant < 2 mIU/mL Independent Interpretation I performed an independent interpretation of an: EKG and Plain X-Ray Interpretation: Normal sinus rhythm heart rate 69 beats per minute normal interval normal axis no acute ST-T changes no acute ischemia Radiology Impression Discussion of test interpretation with radiology: I have reviewed the radiologist's reading. Discharge Plan Discharge Clinical Impression: Acute costochondritis Patient Disposition: Home, Self-Care Instructions: Costochondritis (ED) Additional Instructions: Take pain medication as prescribed Tramadol for severe pain Your chest pain is from inflammation of the cartilage Prescriptions: New tramadol 50 mg tablet 50 mg PO Q6H PRN (Reason: pain) Qty: 20 0RF ibuprofen 600 mg tablet 600 mg PO Q6H PRN (Reason: fever or pain) Qty: 30 0RF No Action oxycodone 5 mg tablet 5 mg PO Q6H PRN (Reason: pain) Qty: 14 0RF Rx Instructions: Partial Fill upon patient request. ibuprofen 600 mg tablet 600 mg PO Q6H PRN (Reason: pain) Qty: 20 0RF levothyroxine 137 mcg tablet 0 mcg PO cholecalciferol (vitamin D3) 50 mcg (2,000 unit) capsule 50 mcg PO DAILY meloxicam 15 mg tablet 15 mg PO DAILY PRN (Reason: pain) Qty: 14 0RF Rx Instructions: Do not combine with other NSAIDS cyclobenzaprine 5 mg tablet 5 mg PO BEDTIME PRN (Reason: muscle spasm) Qty: 7 0RF Rx Instructions: Take only before bedtime. Print Language: Uzbek
[2024-07-09 19:44] LABS: MANUAL DIFF FLAG NO
[2024-07-09 19:46] LABS: Basophils Absolute Auto 0.1 X10*3/uL (0.0-0.2); Basophils Percent Auto 0.5 % (0-2); Eosinophils Absolute Auto 0.3 X10*3/uL (0.0-0.4); Eosinophils Percent Auto 2.4 % (0-4); Hematocrit 36.8 % (37.0-47.0); Hemoglobin 12.5 g/dl (12.0-16.0); Imm Gran Pct Auto 0.8 % (0.0-0.4); Lymphocytes Absolute Auto 3.2 X10*3/uL (1.2-4.9); Lymphocytes Percent Auto 26.5 % (20-40); Mean Corpuscular Hemoglobin 29.1 pg (27.0-33.0); Mean Corpuscular Volume 85.8 fL (80.0-98.0); Mean Platelet Volume 9.7 fL (9.4-12.3); Monocytes Absolute Auto 0.8 X10*3/uL (0.1-1.2); Monocytes Percent Auto 6.9 % (2-11); Neutrophils Absolute Auto 7.5 x10*3/uL (2.0-8.3); Neutrophils Percent Auto 62.9 % (45-73); Platelet Count 331 X10*3/uL (160-400); Red Blood Count 4.29 X10*6/uL (4.20-5.50); Red Cell Distribution Width 13.1 % (11.0-16.0); White Blood Count 11.9 X10*3/uL (4.8-10.8)
[2024-07-09 20:08] LABS: Alanine Aminotransferase 10 U/L (0-31); Albumin Level 4.1 g/dL (3.5-5.0); Alkaline Phosphatase 88 U/L (39-117); Anion Gap 14 (12-20); Aspartate Amino Transferase 14 U/L (5-31); Bilirubin Total 0.3 mg/dL (0.0-1.0); Blood Urea Nitrogen 12 mg/dL (9-16); Calcium 9.9 mg/dL (8.4-10.2); Carbon Dioxide 23 mmol/L (22-29); Chloride 105 mmol/L (96-108); Creatinine Clr Calc Pharmacy 106.8; Estimated Glomerular Filt Rate > 60; Glucose Random 96 mg/dL (60-115); HCG Quantitative < 2 mIU/mL; Potassium 3.9 mmol/L (3.3-5.1); Sodium 138 mmol/L (135-145); Total Protein 7.5 g/dL (6.5-8.0); Troponin-I High Sensitivity < 2.7 ng/L (<3.5-17.0)
[2024-07-09] MEDS: Ibuprofen 600 MG TABLET PO (21:37)
[2024-07-09] MEDS: traMADoL HCL 50 MG TABLET PO (21:38)
[2024-07-09 22:11] VITALS: BP 129/75; PULSE 75; RESP 16; TEMP 36.7; O2SAT 99
== END 2024-07-09 22:11 | disposition home or self-care (01) ==
PROVIDERS: Emergency Provider Internal Medicine
DX: M94.0 Chondrocostal junction syndrome [Tietze] (principal)
CPT/HCPCS: 36415; 71046; 80053; 84484; 84702; 85025; 93005; 99283

== ENCOUNTER 2024-10-04 11:22 | Outpatient (AMB) | payer MEDICAID, SELFPAY ==
[2024-10-04 12:39] VITALS: BP 110/74; PULSE 75; TEMP 37; O2SAT 98; BMI 38.3
--- NOTE | 2024-10-04 12:39 | MHC.OFFWIV ---
Intake Vital Signs 10/04/24 12:39 Height 5 ft 5 in Weight 230 lb BMI 38.3 BP 110/74 Blood Pressure Location Lt brachial Position Sitting Pulse 75 Pulse Source Pulse Oximeter Temp 98.6 F Temp Source Oral Pulse Oximetry (%) 98 Oxygen Delivery Method Room Air Intake Visit Reasons: EP Throat, LT hand, Back Intake Note: Pt is here today for a walk in visit. Pt c/o sore throat and L hand pain. Patient Tobacco Use Status: Never used Tobacco Allergies No Known Allergies Allergy (Verified 10/04/24 12:42) HPI EP Throat, LT hand, Back HPI Details This is a 38 year old female patient who presents to the [place] clinic today with a 3-4 day history of Sore throat and body aches , particularly her back. Reports her teenage son had similar symptoms. He was negative for strep/ COVID/flu. She has been taking ibuprofen and Tylenol with minimal relief. She denies fever or chills. She denies any respiratory symptoms or shortness of breath. She denies any GI symptoms. she also complains of left hand pain and numbness over the last 2-3 months. She has not been able to get established with a PCP for evaluation of this. She is left-hand dominant. 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 She reports pain in her hand and numbness/tingling, particularly in the last 2 digits. [facility] Medical History No known health problems Social History Patient Tobacco Use Status: Never used Tobacco Review of Systems Const All systems reviewed & are unremarkable except as noted in HPI and below Physical Exam Vital Signs: Last Vital Signs Temp 98.6 F 10/04/24 12:39 Pulse 75 10/04/24 12:39 BP 110/74 10/04/24 12:39 Pulse Ox 98 10/04/24 12:39 Oxygen Delivery Method Room Air 10/04/24 12:39 BMI result Body Mass Index 38.3 Const General: cooperative and ill appearing acutely HEENT Head: Yes normal to inspection Ears: hearing grossly normal bilaterally General nose exam: Normal external nose present Face and sinus: Yes normal facial exam Mouth: Normal oral and palatal mucosa present Throat: Yes posterior oropharynx abnormal ( Tonsillar hypertrophy, no erythema or exudate) Neck Neck: Yes no lymphadenopathy Resp Effort & Inspection: normal respiratory effort Auscultation: clear to auscultation bilaterally Cardio Rate: regular rate Rhythm: regular rhythm Skin General skin exam: no rashes or lesions noted Extrem General: Yes capillary refill normal and Yes no clubbing, cyanosis or edema Left upper extremity: hand (pain with making fist on left, +Tinel's sign on left) Details: normal capillary refill, neuromotor exam abnormal and no swelling Psych Appearance: grossly normal Mental Status: mental status grossly normal Speech and movement: Normal speech and movement present Results AMB Rapid Strep AMB Rapid Strep Negative Last Edit by MARIE Bryant on 10/04/24 12:51 Results Reviewed Results Reviewed: Laboratory Last Values Strep Scn Rapid Clinic Negative 10/04/24 12:46 Assessment & Plan Assessment & Plan (1) Viral pharyngitis: Code(s): J02.9 - Acute pharyngitis, unspecified Plan: rapid strep was negative. Reviewed conservative measures for likely viral illness, including [id number] cold / flu medication, throat lozenges and warm/saltwater gargles. also recommended increased hydration, rest, healthy food intake. She is having a lot of back and body aches, and so I will prescribe her a short course of meloxicam, which she has taken previously and done well on. We reviewed indications, use, possible side effects of this medication. If she does not improve with time and conservative measures , or if symptoms worsen/ new symptoms develop, she should return to the clinic for further evaluation. She verbalizes understanding and agrees to plan. Work note provided. (2) Generalized body aches: Code(s): R52 - Pain, unspecified Plan: As above (3) Numbness and tingling in left hand: Code(s): R20.0 - Anesthesia of skin; R20.2 - Paresthesia of skin Plan: Likely CTS. Left hand dominant. 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 Exam consistent with CTS. No PCP at this time. Will refer to ortho at [facility] per patient request. Orders: Orders AMB Rapid Strep Screen Today Tulio Bermudez MD Z13.9 - Encounter for screening, unspecified Referrals Orthopedics Referral JADON Ceron R20.0 - Anesthesia of skin, R20.2 - Paresthesia of skin Medications: New meloxicam 15 mg PO DAILY 7 days 7 tabs 0RF JADON Ceron J06.9 - Acute upper respiratory infection, unspecified, R52 - Pain, unspecified Coding Level of Care Code Est Pt Level 4 (72896) Diagnoses Viral pharyngitis J02.9 Generalized body aches R52 Numbness and tingling in left hand R20.0; R20.2
== END 2024-10-04 13:15 | disposition home or self-care (01) ==
PROVIDERS: Visit Provider Nurse Practitioner Family
DX: J02.9 Acute pharyngitis, unspecified (principal); R52 Pain, unspecified; R20.0 Anesthesia of skin; R20.2 Paresthesia of skin; Z13.9 Encounter for screening, unspecified

== ENCOUNTER → 2024-10-04 11:22 | Outpatient (BNVA) | payer MEDICAID, SELFPAY | DX: J02.9 Acute pharyngitis, unspecified (principal); M79.642 Pain in left hand; M54.9 Dorsalgia, unspecified; R20.0 Anesthesia of skin; R20.2 Paresthesia of skin | CPT/HCPCS: 87880; 99212 ==

== ENCOUNTER 2025-04-10 10:51 | Emergency (ER) | payer OTHER, SELFPAY ==
--- NOTE | ~2025-04-10 | US_ITS ---
EXAMINATION: US PELVIS CLINICAL INFORMATION: Left suprapubic pain. History of ovarian cysts. COMPARISON: 04/13/2019. TECHNIQUE: Ultrasound of the pelvis is performed using both transabdominal and transvaginal transducers along with Doppler. Transvaginal imaging is performed due to inadequate visualization transabdominally. FINDINGS: Uterus: The uterus is retroverted, anteflexed, and measures 8.5 x 5.7 x 5.9 cm. The cervix is normal with small the bowel seen cysts present. The double wall endometrial thickness is 11 mm. It is uniform. The uterus is smooth in contour and has heterogeneous myometrial echogenicity. There are 3 fibroids identified. -An anterior mid uterine segment intramural fibroid measures 0.8 x 0.7 x 0.9 cm, unchanged. -A dorsal mid uterine segment intramural fibroid measures 1.9 x 1.6 x 1.9 cm, new from prior. -A left mid uterine segment intramural fibroid measures 0.9 x 0.6 x 0.8 cm, new from prior. Adnexa: Both ovaries are visualized. There is normal color flow to the adnexa. There is no ovarian torsion. There is a small amount of simple pelvic fluid in the right adnexa. This is likely physiologic. Right ovary measures 5.3 x 4.0 x 3.6 cm. Volume = 39.5 mL. There is a complex right ovarian cyst measuring 4.6 x 3.7 x 3.1 cm. This has the appearance of a hemorrhagic cyst with internal lacy echoes. Left ovary measures 2.7 x 1.2 x 2.3 cm. Volume = 3.9 mL. Normal sonographic appearance. US/US pelvic and transvaginal IMPRESSION: 1. Retroverted uterus with 3 small fibroid intramural tumors as detailed. 2. No evidence of ovarian torsion. 3. Complex right ovarian cyst measuring 4.6 x 3.7 x 3.1 cm. This is likely a hemorrhagic cyst given appearance. 4. Normal right ovary. 5. Small amount of free fluid seen right adnexa, likely physiologic. 6. Normal endometrial stripe at 11 mm. Electronically signed by: Reji Conte MD 04/10/2025 04:57 PM EDT
--- NOTE | ~2025-04-10 | US_ITS ---
EXAMINATION: US PELVIS CLINICAL INFORMATION: Left suprapubic pain. History of ovarian cysts. COMPARISON: 04/13/2019. TECHNIQUE: Ultrasound of the pelvis is performed using both transabdominal and transvaginal transducers along with Doppler. Transvaginal imaging is performed due to inadequate visualization transabdominally. FINDINGS: Uterus: The uterus is retroverted, anteflexed, and measures 8.5 x 5.7 x 5.9 cm. The cervix is normal with small the bowel seen cysts present. The double wall endometrial thickness is 11 mm. It is uniform. The uterus is smooth in contour and has heterogeneous myometrial echogenicity. There are 3 fibroids identified. -An anterior mid uterine segment intramural fibroid measures 0.8 x 0.7 x 0.9 cm, unchanged. -A dorsal mid uterine segment intramural fibroid measures 1.9 x 1.6 x 1.9 cm, new from prior. -A left mid uterine segment intramural fibroid measures 0.9 x 0.6 x 0.8 cm, new from prior. Adnexa: Both ovaries are visualized. There is normal color flow to the adnexa. There is no ovarian torsion. There is a small amount of simple pelvic fluid in the right adnexa. This is likely physiologic. Right ovary measures 5.3 x 4.0 x 3.6 cm. Volume = 39.5 mL. There is a complex right ovarian cyst measuring 4.6 x 3.7 x 3.1 cm. This has the appearance of a hemorrhagic cyst with internal lacy echoes. Left ovary measures 2.7 x 1.2 x 2.3 cm. Volume = 3.9 mL. Normal sonographic appearance. US/US pelvic ovarian doppler IMPRESSION: 1. Retroverted uterus with 3 small fibroid intramural tumors as detailed. 2. No evidence of ovarian torsion. 3. Complex right ovarian cyst measuring 4.6 x 3.7 x 3.1 cm. This is likely a hemorrhagic cyst given appearance. 4. Normal right ovary. 5. Small amount of free fluid seen right adnexa, likely physiologic. 6. Normal endometrial stripe at 11 mm. Electronically signed by: Reji Conte MD 04/10/2025 04:57 PM EDT
--- NOTE | ~2025-04-10 | CT_ITS ---
CLINICAL HISTORY: L flank pain, UTI CT abdomen and pelvis with contrast Comparison: None available Findings: No consolidation at the lung bases. Unremarkable gallbladder. No bladder stone or definitive wall thickening. Hepatic steatosis. No hydronephrosis or nephrolithiasis. Questionable decreased enhancement in the upper pole of the left kidney. 4.3 cm fluid attenuation lesion in the left adnexa. The other solid organs are unremarkable. No bowel wall thickening or dilation. A normal appendix is identified. Normal vasculature. No lymphadenopathy. No ascites. No acute osseous abnormality. Impression: No urinary tract stone or obstruction. Questionable decreased enhancement in the upper pole of the left kidney may indicate pyelonephritis. 4.3 cm fluid attenuation lesion in the left adnexa is likely an ovarian cyst which can be further characterized with pelvic ultrasound. This document has been electronically signed by: Tina Portillo MD on 04/10/2025 20:49:33
[2025-04-10 11:21] VITALS: BP 132/92; PULSE 81; RESP 18; TEMP 37.1; O2SAT 99; BMI 39.0
--- NOTE | 2025-04-10 11:21 | ED.GENADULT ---
HPI - General Adult General Chief complaint: Abdominal Pain Stated complaint: L Side Pain Pressure Time Seen by Provider: 04/10/25 13:36 Source: patient Mode of arrival: ambulatory Limitations: no limitations History of Present Illness ED Provider: ALEXANDRIA MENA PA-C HPI narrative: 39 year old female with pmhx significant for thyroid cancer, migraines presents to the ED today for evaluation of suprapubic abdominal pain x1 week. Pain is now radiating to left flank. Pain is 7-8/10 at present. Trialed tylenol and Motrin without relief. Heating pad somewhat relieves her discomfort. She did not take anything today prior to presentation. Admits to history of left sided ovarian cyst years ago. Pain feels similar to this. She has not followed up with her bundle breaker in some time. Reports regular menstrual periods. LMP early March (beginning of this month). She states she is not sexually active. Denies chance of . Denies concern for STDs. Denies fever, chills, nausea, vomiting, dysuria, hematuria, vaginal discharge, vaginal pain, vaginal bleeding. No history of recurring UTIs. Related Data Home Medications ?Medication ?Instructions ?Recorded ?Confirmed cholecalciferol (vitamin D3) 50 50 mcg PO DAILY 01/03/21 12/29/23 mcg (2,000 unit) capsule levothyroxine 137 mcg tablet 0 mcg PO 01/03/21 12/29/23 Previous Rx's ?Medication ?Instructions ?Recorded cyclobenzaprine 5 mg tablet 5 mg PO BEDTIME PRN muscle spasm 12/29/23 #7 tabs meloxicam 15 mg tablet 15 mg PO DAILY PRN pain #14 tabs 12/29/23 ibuprofen 600 mg tablet 600 mg PO Q6H PRN pain #20 tabs 01/01/24 oxycodone 5 mg tablet 5 mg PO Q6H PRN pain #14 tabs 01/01/24 ibuprofen 600 mg tablet 600 mg PO Q6H PRN fever or pain 07/09/24 #30 tabs tramadol 50 mg tablet 50 mg PO Q6H PRN pain #20 tabs 07/09/24 meloxicam 15 mg tablet 15 mg PO DAILY 7 days #7 tabs 10/04/24 cefuroxime axetil 500 mg tablet 500 mg PO Q12H #14 tabs 04/10/25 Allergies Allergy/AdvReac Type Severity Reaction Status Date / Time No Known Allergies Allergy Verified 04/10/25 11:23 Review of Systems Review of Systems: Constitutional: No fever, chills, fatigue, night sweats, weight changes ENT/Mouth: No ear pain, hearing loss, nasal congestion, sinus pain, rhinorrhea, sore throat Eyes: No eye pain, swelling, redness, vision changes, discharge Cardio: No chest pain, palpitations, [place], orthopnea, peripheral edema Pulm: No SOB, cough, sputum, wheezing, dyspnea, hemoptysis GI: No nausea, vomiting, hematemesis, diarrhea, constipation, hematochezia, melena, +abd pain : No irregular bleeding, dysuria, frequency, urgency, hesitancy, hematuria, flank pain, urinary flow changes, urinary incontinence or retention, +flank pain MSK: No back pain, neck pain, joint pain, myalgias Skin: No lesions, rashes Neuro: No weakness, numbness, paresthesias, LOC, dizziness, headache Psych: No anxiety/panic, depression, SI/HI, AH/VH All other systems reviewed and are negative. [facility] Past Medical History Attestation statement: The following information was validated with the patient. Source: old records reviewed and nursing notes reviewed Medical History No known health problems Social History Social History Patient Tobacco Use Status: Never used Tobacco Physical Exam ED Vital Signs: Vital Signs - 24 hr 04/10/25 17:49 04/10/25 18:10 04/10/25 20:28 Temperature 97.7 F 97.1 F Pulse Rate 73 71 Respiratory Rate 20 16 16 Blood Pressure 123/68 105/60 Pulse Oximetry 96 97 Oxygen Delivery Method Room Air Room Air 04/10/25 21:45 Temperature 97.1 F Pulse Rate 71 Respiratory Rate 16 Blood Pressure 105/60 Pulse Oximetry 97 Oxygen Delivery Method Room Air BMI result Body Mass Index 39.0 Hypertensive, vitals otherwise WNL General: Well appearing, in no acute distress. Skin: Warm, dry, intact. No rashes or lesions. Head: Normocephalic, atraumatic. EENT: Hearing is intact b/l. Conjunctiva clear. Sclera is anicteric. PERRLA. EOM intact. Moist mucous membranes.? Cardiac: Chest wall symmetric. RRR Lungs: Normal respiratory effort without accessory muscle use. CTA bilaterally. Abdomen: Soft, nondistended, tender to palpation of left lower quadrant/suprapubic region, no rebound or guarding. Positive left CVAT Back: No midline spinous or paraspinal tenderness. No step off deformity. Ext: Upper and lower extremities atraumatic, without tenderness, deformity, swelling or erythema Neuro: AOx3. Normal speech. Ambulating with steady gait. Course Course Course Narrative: This is an RME: Additional HPI, ROS, PE not included below will be deferred to primary provider. RME assessment and note performed by: Gloria Valle PA-C This is [id number], with a history of thyroid disease, who presents to the Er with complaints of left sided flank pain x 1 week. No vaginal discharge, urinary symptoms. Hx of ovarian cysts. LMP beginning of March. Patient with tenderness palpation along the left lateral flank, does not extend into the abdomen. She does have some suprapubic tenderness. Plan: Labs, UA, further ER evaluation needed. Reevaluation(s) Reevaluation #1: 1400 -- CBC showing slight leukocytosis to 11.6 without left shift. No anemia, H&H stable. Chemistry without acute electrolyte abnormality requiring intervention. No MELISSA. Liver function WNL. Beta quant undetectable, not . Urine showing moderate leukocyte esterase, 11-20 WBCs, trace urine bacteria > pelvic ultrasound pending > medicated with Toradol, plan for re-evaluation 1725 -- pelvic ultrasound showing 3 small fibroid, normal endometrial stripe. There is a complex right ovarian cyst measuring 4.6 x 3.7 x 3.1 cm, likely hemorrhagic even appearance. Small amount of free fluid within the right adnexa, likely physiologic. Normal left ovary. No evidence of torsion to either ovary. > patient reports minimal improvement with Toradol. Will order CT scan to further assess left flank pain. patient agreeable. morphine ordered for pain control. 1899 -- patient is stable at the end of my shift. Sign-out given to Familia CORNELL pending imaging and disposition. Reevaluation #2: patient received in sign-out at change of shift pending CT abdomen pelvis which does show concern for pyelonephritis which the patient does have clinically. The CT scan also mentions a left adnexal mass consistent with an ovarian cyst the size measuring the CAT scan is similar to the size measured on the ultrasound which indicated a right ovarian cyst. I suspect that there was a miscommunication in the radiology department and the patient does not in fact have a right ovarian cyst but rather a left complex ovarian cyst as this is where her pain is in the CT scan shows only a left adnexal mass. I discussed this with the patient and she states that the radiation monitor was stating right side while indicating the patient's left side. regardless, the patient will be treated for a pyelonephritis given the urinalysis and clinical exam findings as well as CT findings. Time: 21:03 Medications Administered Discontinued Medications Generic Name Dose Route Start Last Admin Trade Name Freq PRN Reason Stop Dose Admin Ceftriaxone Sodium 1 gm 04/10/25 21:01 04/10/25 21:33 Ceftriaxone Sodium 1 Gm Vial IVPUSH 04/10/25 21:02 1 gm ONCE ONE Administration Iohexol 100 ml 04/10/25 19:20 04/10/25 19:21 Iohexol 350 Mg/Ml 100 Ml Infus..Btl IV 04/10/25 19:21 100 ml ONCE ONE Administration Ketorolac Tromethamine 30 mg 04/10/25 14:12 04/10/25 14:18 Ketorolac Tromethamine 30 Mg/Ml Vial IM 04/10/25 14:13 30 mg ONCE ONE Administration Morphine Sulfate 4 mg 04/10/25 17:28 04/10/25 17:49 Morphine Sulfate 4 Mg/Ml Cartridge IVPUSH 04/10/25 17:29 4 mg ONCE ONE Administration Protocol Medical Decision Making Medical Decision Making MDM Narrative: 39 year old female with pmhx significant for thyroid cancer, migraines presents to the ED today for evaluation of suprapubic abdominal pain x1 week. Patient is hypertensive, afebrile. She is well-appearing and in no acute distress. Abdomen is soft, nondistended, tender to palpation of left lower quadrant/suprapubic region without rebound or guarding. Active bowel sounds x4. There is left CVAT. Differential diagnoses: UTI, IUP, constipation, anemia, electrolyte abnormality, ovarian cyst/rupture/torsion, ectopic, pyelonephritis, renal colic, nephrolithiasis Lower suspicion for atypical appendicitis, diverticulitis, diverticulosis. Abdominal exam without peritoneal signs. No evidence of acute abdomen at this time. Well appearing. Low suspicion for acute hepatobiliary disease (including acute cholecystitis), acute infectious processes (pneumonia, hepatitis, PID, TOA), vascular catastrophe, bowel obstruction or viscus perforation. Presentation not consistent with other acute, emergent causes of abdominal pain at this time. Plan: labs, UA, pelvic US/ doppler, pain control, serial reassessment Differential Diagnosis Differential Diagnoses: The differential diagnosis associated with the presentation includes as above. Admission/Observation Not indicated Lab Data MDM Lab Attestation statement: I reviewed the patient's lab results. as above. 04/10/25 11:53 04/10/25 11:53 Labs: Lab Results 04/10/25 04/10/25 Range/Units 11:53 11:54 WBC 11.6 H (4.8-10.8) X10*3/uL RBC 4.44 (4.20-5.50) X10*6/uL Hgb 12.9 (12.0-16.0) g/dl Hct 37.8 (37.0-47.0) % MCV 85.1 (80.0-98.0) fL MCH 29.1 (27.0-33.0) pg MCHC 34.1 (31.0-35.0) g/dl RDW 13.2 (11.0-16.0) % Plt Count 313 (160-400) X10*3/uL MPV 9.6 (9.4-12.3) fL Immature Gran % (Auto) 1.0 H (0.0-0.4) % Neut % (Auto) 67.1 (45-73) % Lymph % (Auto) 23.9 (20-40) % [place] % (Auto) 5.6 (2-11) % Eos % (Auto) 2.1 (0-4) % Baso % (Auto) 0.3 (0-2) % Lymph # (Auto) 2.8 (1.2-4.9) X10*3/uL [place] # (Auto) 0.7 (0.1-1.2) X10*3/uL Eos # (Auto) 0.2 (0.0-0.4) X10*3/uL Baso # (Auto) 0.0 (0.0-0.2) X10*3/uL Abs Immat Gran (auto) 0.12 H (0.00-0.03) X10*3/uL Absolute Neuts (auto) 7.8 (2.0-8.3) x10*3/uL Absolute Nucleated RBC 0.000 (0.0-0.012) X10*3/uL Nucleated RBC % (auto) 0.0 (0.0-0.2) /100WBC Sodium 139 (135-145) mmol/L Potassium 4.0 (3.3-5.1) mmol/L Chloride 106 (96-108) mmol/L Carbon Dioxide 24 (22-29) mmol/L Anion Gap 13 (12-20) BUN 13 (9-16) mg/dL Creatinine 0.77 (0.5-1.4) mg/dL Estim Creat Clear Calc 118.8 Estimated GFR > 60 Random Glucose 108 (60-115) mg/dL Calcium 9.1 D (8.4-10.2) mg/dL Magnesium 2.1 (1.6-2.6) mg/dL Total Bilirubin 0.3 (0.0-1.0) mg/dL Direct Bilirubin 0.1 (0.0-0.5) mg/dL AST 13 (5-31) U/L ALT 8 (0-31) U/L Alkaline Phosphatase 85 (39-117) U/L Total Protein 7.4 (6.5-8.0) g/dL Albumin 4.2 (3.5-5.0) g/dL Lipase 17 (8-78) U/L Beta HCG, Quant < 2 mIU/mL Urine Color Yellow Urine Appearance Clear Urine pH 7.0 (5.0-9.0) Ur Specific [employer] 1.025 (1.005-1.025) Urine Protein Negative (Neg-Trace) mg/dL Urine Glucose (UA) Negative (Negative) mg/dL Urine Ketones Negative (Negative) mg/dL Urine Blood Negative (Negative) Urine Nitrite Negative (Negative) Ur Leukocyte Esterase Moderate (2+) H (Negative) Urine RBC 0-2 (0-2) /HPF Urine WBC 11-20 H (0-5) /HPF Ur Squamous Epith Cells 3-5 (0-2) /HPF Urine Bacteria Trace (None Seen) Hyaline Casts 0-2 (0-2) /LPF Independent Interpretation I performed an independent interpretation of an: Ultrasound and CT Scan Interpretation: Pelvic Doppler ultrasound with good blood flow to both ovaries Radiology Impression Discussion of test interpretation with radiology: I have reviewed the radiologist's reading. Radiologist Impression: Procedure(s): US pelvic and transvaginal Accession Number(s): [id number] cc: Physician,None ; Alexandria Mena~ EXAMINATION: US PELVIS CLINICAL INFORMATION: Left suprapubic pain. History of ovarian cysts. COMPARISON: 04/13/2019. TECHNIQUE: Ultrasound of the pelvis is performed using both transabdominal and transvaginal transducers along with Doppler. Transvaginal imaging is performed due to inadequate visualization transabdominally. FINDINGS: Uterus: The uterus is retroverted, anteflexed, and measures 8.5 x 5.7 x 5.9 cm. The cervix is normal with small the bowel seen cysts present. The double wall endometrial thickness is 11 mm. It is uniform. The uterus is smooth in contour and has heterogeneous myometrial echogenicity. There are 3 fibroids identified. -An anterior mid uterine segment intramural fibroid measures 0.8 x 0.7 x 0.9 cm, unchanged. -A dorsal mid uterine segment intramural fibroid measures 1.9 x 1.6 x 1.9 cm, new from prior. -A left mid uterine segment intramural fibroid measures 0.9 x 0.6 x 0.8 cm, new from prior. Adnexa: Both ovaries are visualized. There is normal color flow to the adnexa. There is no ovarian torsion. There is a small amount of simple pelvic fluid in the right adnexa. This is likely physiologic. Right ovary measures 5.3 x 4.0 x 3.6 cm. Volume = 39.5 mL. There is a complex right ovarian cyst measuring 4.6 x 3.7 x 3.1 cm. This has the appearance of a hemorrhagic cyst with internal lacy echoes. Left ovary measures 2.7 x 1.2 x 2.3 cm. Volume = 3.9 mL. Normal sonographic appearance. US/US pelvic and transvaginal IMPRESSION: 1. Retroverted uterus with 3 small fibroid intramural tumors as detailed. 2. No evidence of ovarian torsion. 3. Complex right ovarian cyst measuring 4.6 x 3.7 x 3.1 cm. This is likely a hemorrhagic cyst given appearance. 4. Normal right ovary. 5. Small amount of free fluid seen right adnexa, likely physiologic. 6. Normal endometrial stripe at 11 mm. Electronically signed by: Reji Conte MD 04/10/2025 04:57 PM EDT RP Findings: No consolidation at the lung bases. Unremarkable gallbladder. No bladder stone or definitive wall thickening. Hepatic steatosis. No hydronephrosis or nephrolithiasis. Questionable decreased enhancement in the upper pole of the left kidney. 4.3 cm fluid attenuation lesion in the left adnexa. The other solid organs are unremarkable. No bowel wall thickening or dilation. A normal appendix is identified. Normal vasculature. No lymphadenopathy. No ascites. No acute osseous abnormality. Impression: No urinary tract stone or obstruction. Questionable decreased enhancement in the upper pole of the left kidney may indicate pyelonephritis. 4.3 cm fluid attenuation lesion in the left adnexa is likely an ovarian cyst which can be further characterized with pelvic ultrasound. This document has been electronically signed by: Tina Portillo MD on 04/10/2025 20:49:33 External Record Review External record reviewed: Inpatient record Prescription Management I considered prescription management with: Pain Medication and Antibiotic Social Determinants Patient?s care significantly limited by Social Determinants of Health including: Other Social Determinant of Health Critical Care Time Critical Care Time Critical Care Time: No Discharge Plan Discharge Clinical Impression: Acute pyelonephritis, Ovarian cyst Patient Disposition: Home, Self-Care Instructions: Ovarian Cyst (ED), Kidney Infection (ED) Additional Instructions: your CT scan did show findings consistent with a kidney infection. Take the antibiotics as directed for 1 week the CAT scan also showed a left adnexal mass consistent with and ovarian cyst. I suspect that the cartography technician made a mistake and you do not in fact have a right ovarian cyst but rather only 1 in the left you may follows up with your primary doctor, return for new or worsening symptoms Prescriptions: New cefuroxime axetil 500 mg tablet 500 mg PO Q12H Qty: 14 0RF No Action oxycodone 5 mg tablet 5 mg PO Q6H PRN (Reason: pain) Qty: 14 0RF Rx Instructions: Partial Fill upon patient request. ibuprofen 600 mg tablet 600 mg PO Q6H PRN (Reason: pain) Qty: 20 0RF tramadol 50 mg tablet 50 mg PO Q6H PRN (Reason: pain) Qty: 20 0RF ibuprofen 600 mg tablet 600 mg PO Q6H PRN (Reason: fever or pain) Qty: 30 0RF levothyroxine 137 mcg tablet 0 mcg PO cholecalciferol (vitamin D3) 50 mcg (2,000 unit) capsule 50 mcg PO DAILY meloxicam 15 mg tablet 15 mg PO DAILY PRN (Reason: pain) Qty: 14 0RF Rx Instructions: Do not combine with other NSAIDS cyclobenzaprine 5 mg tablet 5 mg PO BEDTIME PRN (Reason: muscle spasm) Qty: 7 0RF Rx Instructions: Take only before bedtime. meloxicam 15 mg tablet 15 mg PO DAILY 7 Days Qty: 7 0RF Interventions: ED Discharge Assessment Last Done: 04/10/25 21:45 Discharge Date/Time: 04/10/25 21:45 Print Language: Thai
[2025-04-10 11:57] LABS: MANUAL DIFF FLAG NO
[2025-04-10 11:59] LABS: Basophils Percent Auto 0.3 % (0-2); Eosinophils Absolute Auto 0.2 X10*3/uL (0.0-0.4); Eosinophils Percent Auto 2.1 % (0-4); Hematocrit 37.8 % (37.0-47.0); Hemoglobin 12.9 g/dl (12.0-16.0); Imm Gran Abs Auto 0.12 X10*3/uL (0.00-0.03); Lymphocytes Absolute Auto 2.8 X10*3/uL (1.2-4.9); Lymphocytes Percent Auto 23.9 % (20-40); Mean Corpuscular HGB Conc 34.1 g/dl (31.0-35.0); Mean Corpuscular Hemoglobin 29.1 pg (27.0-33.0); Mean Corpuscular Volume 85.1 fL (80.0-98.0); Mean Platelet Volume 9.6 fL (9.4-12.3); Monocytes Absolute Auto 0.7 X10*3/uL (0.1-1.2); Monocytes Percent Auto 5.6 % (2-11); Neutrophils Absolute Auto 7.8 x10*3/uL (2.0-8.3); Neutrophils Percent Auto 67.1 % (45-73); Platelet Count 313 X10*3/uL (160-400); Red Blood Count 4.44 X10*6/uL (4.20-5.50); Red Cell Distribution Width 13.2 % (11.0-16.0); White Blood Count 11.6 X10*3/uL (4.8-10.8)
[2025-04-10 12:02] LABS: Appearance Urine Clear; Color Urine Yellow; Glucose Urine UA Negative (Negative); Leukocyte Esterase Urine Moderate (2+) (Negative); Nitrite Urine Negative (Negative); Specific Gravity - Urine 1.025 (1.005-1.025); UMIC TRIGGER UACC YES; Urine Blood Negative (Negative); Urine Ketones Negative (Negative); Urine Protein Negative (Neg-Trace)
[2025-04-10 12:07] LABS: Bacteria Urine Trace (None Seen); Hyaline Casts Urine 0-2 /LPF (0-2); RBC Urine 0-2 /HPF (0-2); UACC Culture Trigger YES
[2025-04-10 12:18] LABS: Alanine Aminotransferase 8 U/L (0-31); Albumin Level 4.2 g/dL (3.5-5.0); Alkaline Phosphatase 85 U/L (39-117); Anion Gap 13 (12-20); Aspartate Amino Transferase 13 U/L (5-31); Bilirubin Direct 0.1 mg/dL (0.0-0.5); Bilirubin Total 0.3 mg/dL (0.0-1.0); Blood Urea Nitrogen 13 mg/dL (9-16); Calcium 9.1 mg/dL (8.4-10.2); Carbon Dioxide 24 mmol/L (22-29); Chloride 106 mmol/L (96-108); Creatinine Clr Calc Pharmacy 118.8; Estimated Glomerular Filt Rate > 60; Glucose Random 108 mg/dL (60-115); Lipase 17 U/L (8-78); Magnesium 2.1 mg/dL (1.6-2.6); Sodium 139 mmol/L (135-145); Total Protein 7.4 g/dL (6.5-8.0)
[2025-04-10 12:34] LABS: HCG Quantitative < 2 mIU/mL
[2025-04-10] MEDS: Ketorolac Tromethamine 30 MG/ML VIAL IM (14:18)
[2025-04-10 15:39] VITALS: BP 110/76; PULSE 68; RESP 17; TEMP 36.8; O2SAT 96
[2025-04-10 17:49] VITALS: RESP 20
[2025-04-10] MEDS: Morphine Sulfate 4 MG/ML CARTRIDGE IVPUSH (17:49)
[2025-04-10 18:10] VITALS: BP 123/68; PULSE 73; RESP 16; TEMP 36.5; O2SAT 96
--- NOTE | 2025-04-10 18:30 | PC.NURSE ---
20g placed in left ac, medicated per dec , awaiting ct results
[2025-04-10] MEDS: iohexoL 350 MG/ML 100 ML INFUS..BTL IV (19:21)
--- NOTE | 2025-04-10 19:42 | PC.NURSE ---
Patient awake and alert. skin pwd, resp even and non labored, speaking in full, clear sentences. states that left flank pain is improved at this time, appears comfortable. requesting water at this time. patient aware we are awaiting results of CT and to remain NPO at this time.
[2025-04-10 20:28] VITALS: BP 105/60; PULSE 71; RESP 16; TEMP 36.2; O2SAT 97
[2025-04-10] MEDS: cefTRIAXone sodium 1 GM VIAL IVPUSH (21:33)
[2025-04-10 21:45] VITALS: BP 105/60; PULSE 71; RESP 16; TEMP 36.2; O2SAT 97
== END 2025-04-10 21:45 | disposition home or self-care (01) ==
PROVIDERS: Physician Assistant Medical; Emergency Provider Emergency Medicine
DX: N10 Acute pyelonephritis (principal); N83.202 Unspecified ovarian cyst, left side; N39.0 Urinary tract infection, site not specified; R10.12 Left upper quadrant pain; I10 Essential (primary) hypertension; Z79.899 Other long term (current) drug therapy
CPT/HCPCS: 36415; 74177; 76830; 76856; 80048; 80076; 81001; 81003; 83690; 83735; 84702; 85025; 87086; 93975; 96372; 96374; 96375; 99284; J0696; J1885; J2270; Q9967

== ENCOUNTER → 2025-04-10 14:12 | Outpatient (BNV) | payer OTHER, SELFPAY | PROVIDERS: Emergency Provider Emergency Medicine; Visit Provider Radiology Diagnostic Radiology | DX: K76.0 Fatty (change of) liver, not elsewhere classified (principal); N83.201 Unspecified ovarian cyst, right side | CPT/HCPCS: 74177; 76830; 76856; 93975 ==

== ENCOUNTER 2025-06-21 10:58 | Outpatient (REF) | payer OTHER, SELFPAY ==
[2025-06-21 16:16] LABS: MANUAL DIFF FLAG NO
[2025-06-21 16:24] LABS: Hematocrit 35.6 % (37.0-47.0); Hemoglobin 12.2 g/dl (12.0-16.0); Imm Gran Abs Auto 0.10 X10*3/uL (0.00-0.03); Imm Gran Pct Auto 1.0 % (0.0-0.4); Lymphocytes Absolute Auto 2.3 X10*3/uL (1.2-4.9); Mean Corpuscular HGB Conc 34.3 g/dl (31.0-35.0); Mean Corpuscular Hemoglobin 29.4 pg (27.0-33.0); Mean Corpuscular Volume 85.8 fL (80.0-98.0); NRBC Abs Auto 0.000 X10*3/uL (0.0-0.012); NRBC Pct Auto 0.0 /100WBC (0.0-0.2); Platelet Count 324 X10*3/uL (160-400); Red Blood Count 4.15 X10*6/uL (4.20-5.50); White Blood Count 10.5 X10*3/uL (4.8-10.8)
[2025-06-21 16:31] LABS: Appearance Urine Turbid; Glucose Urine UA Negative (Negative); PH 6.0 (5.0-9.0); Specific Gravity - Urine 1.025 (1.005-1.025); UMIC TRIGGER UA YES
[2025-06-21 16:52] LABS: Alanine Aminotransferase < 6 U/L (0-31); Albumin Level 4.1 g/dL (3.5-5.0); Alkaline Phosphatase 79 U/L (39-117); Anion Gap 12 (12-20); Aspartate Amino Transferase 24 U/L (5-31); Blood Urea Nitrogen 11 mg/dL (9-16); Calcium 9.5 mg/dL (8.4-10.2); Carbon Dioxide 23 mmol/L (22-29); Chloride 106 mmol/L (96-108); Cholesterol 175 mg/dL (<200); Estimated Glomerular Filt Rate > 60; HDL Cholesterol 42 mg/dL (>40); Potassium 3.8 mmol/L (3.3-5.1); Sodium 137 mmol/L (135-145); Total Protein 7.3 g/dL (6.5-8.0); Triglycerides 121 mg/dL (<150)
== END 2025-06-21 10:59 | disposition home or self-care (01) ==
LOC: HO.HMGCLDS 10:58
PROVIDERS: PCP Internal Medicine; Visit Provider Internal Medicine
DX: Z00.00 Encounter for general adult medical examination without abnormal findings (principal); E03.9 Hypothyroidism, unspecified; R10.9 Unspecified abdominal pain; E66.9 Obesity, unspecified; Z79.890 Hormone replacement therapy; Z79.899 Other long term (current) drug therapy; Z68.39 Body mass index [BMI] 39.0-39.9, adult
CPT/HCPCS: 36415; 80053; 80061; 81001; 84443; 85025; 87086; 96127; 99385

== ENCOUNTER 2025-06-21 10:58 | Outpatient (AMB) | payer OTHER, SELFPAY ==
[2025-06-21 11:03] VITALS: BP 122/70; PULSE 82; RESP 17; TEMP 36.4; O2SAT 97; BMI 39.9
--- NOTE | 2025-06-21 11:03 | MHC.PC.OV ---
Vital Signs 06/21/25 11:03 Height 5 ft 5 in Weight 240 lb BMI 39.9 BP 122/70 Blood Pressure Location Lt brachial Position Sitting Respiration 17 Pulse 82 Pulse Source Pulse Oximeter Temp 97.5 F Temp Source Oral Pulse Oximetry (%) 97 Oxygen Delivery Method Room Air Intake Visit Reasons: Established care PE Intake Note: Pt is here today for New patient visit PE. 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 Pt c/o L mid persistent abd discomfort for 2 months. Pt was seen in ER in March, had CT abb/pelvis, and dxd with UTI and treated with Cefuroxime. Pt denies N/V/ change in BM, hematochezia, melena. [facility] Medical History (Updated 06/21/25 @ 12:53 by Archana Reed MD) Obesity (BMI 30-39.9) Annual physical exam Abdominal pain Hypothyroid Normal pelvic exam No known health problems Surgical History (Updated 06/21/25 @ 11:44 by Archana Reed MD) Hx of thyroidectomy Family History (Updated 06/21/25 @ 11:46 by Archana Reed MD) Father Diabetes Lung cancer, Onset Age: 51 Mother Hypertension Breast CA, Onset Age: 62 Social History (Updated 06/21/25 @ 11:46 by Archana Reed MD) Household Members Other:: single, 3 children, youngest 15 yr ago Housing: Apartment Patient Tobacco Use Status: Never used Tobacco e-Cigarette/Vaping Use: Never Used Second Hand Smoke Exposure: No service: No Current occupational status: unemployed Cognitive needs: No Hearing needs: No Vision needs: No Questionnaire PHQ-9 Over the last 2 weeks, how often have you been bothered by any of the following problems? 1. Little interest or pleasure in doing things: several days 2. Feeling down, depressed, or hopeless: not at all 3. Trouble falling or staying asleep, or sleeping too much: not at all 4. Feeling tired or having little energy: not at all 5. Poor appetite or overeating: not at all 6. Feeling bad about yourself - or that you are a failure or have let yourself or your family down: not at all 7. Trouble concentrating on things, such as reading the newspaper or watching television: not at all 8. Moving or speaking so slowly that other people could have noticed. Or the opposite - being so fidgety or restless that you have been moving around a lot more than usual: not at all 9. Thoughts that you would be better off or of hurting yourself in some way: not at all Total score: 1 Depression Screening Interpretation: Negative Depression Screening Done: Yes 07647 - PHQ-9 Billing: Yes Source: Developed by Drs. Randy Vora, Anabella Winter, Nicola Leger and colleagues, with an educational dea from [employer]. Thrive Questionnaire Date Thrive assessed: 06/21/25 I am a: Patient What is your living situation today?: I have a steady place to live Within the past 12 months, did the food you bought not last and you didn't have the money to get more?: Never true Within the past 12 months, did you worry whether your food would run out before you got money to buy more?: Never true Do you have trouble paying for medicines?: No Do you have trouble getting transportation to medical appointments?: No Do you have trouble paying your heating and electricity bill?: No Do you have trouble taking care of your child, family member or friend?: No Do you have trouble with day-to-day activities such as bathing, preparing meals, shopping, managing finances, etc.?: No Are you currently unemployed and looking for a job?: No Are you interested in more education?: I choose not to answer this question Please select the resources that you would like help with: None Currently or been in a relationship where the following occur: No concerns reported THRIVE Score: 0 AUDIT C Alcohol Use Questionnaire (AUDIT-C) 1. How often do you have a drink containing alcohol?: Never 3. How often do you have six or more drinks on one occasion?: Never Total Score: 0 DEANA-7 AMB Questionnaire DEANA-7 Date DEANA - 7 assessed: 06/21/25 Feeling nervous, anxious, or on edge: 0 = Not at all Not being able to stop or control worryin = Not at all Worrying too much about different things: 0 = Not at all Trouble relaxin = Not at all Being so restless that it is hard to sit still: 0 = Not at all Becoming easily annoyed or irritable: 0 = Not at all Feeling afraid as if something awful might happen: 0 = Not at all Total DEANA-7 score (0-4 normal; 5-9 mild; 10-14 moderate; 15-21 severe): 0 Source: Developed by Drs. Randy Vora, Anabella Winter, Nicola Leger and colleagues, with an educational dae from [employer]. DEANA-7 Assessment Billing DEANA-7 Assessment Tool: DEANA-7 Assessment 41294 Review of Systems Const All systems reviewed & are unremarkable except as noted in HPI and below Eyes Reports no additional complaints ENT Reports no additional complaints Card Reports no additional complaints Resp Reports no additional complaints GI Reports no additional complaints Reports no additional complaints Physical exam (Primary Care) Vital Signs: Last Vital Signs Temp 97.5 F 06/21/25 11:03 Pulse 82 06/21/25 11:03 Resp 17 06/21/25 11:03 BP 122/70 06/21/25 11:03 Pulse Ox 97 06/21/25 11:03 Oxygen Delivery Method Room Air 06/21/25 11:03 BMI result Body Mass Index 39.9 Tobacco/Smoking Status: Tobacco use Status Tobacco use date assessed 06/21/25 06/21/25 11:03 Patient Tobacco Use Status Never used Tobacco 06/21/25 11:17 e-Cigarette/Vaping Use Never Used 06/21/25 11:17 PHQ-9: PHQ-9 Score PHQ-9: Total score 1 06/21/25 11:17 Depression Screening Interpretation: Negative Thrive Assessment: Date of Thrive Assessment Date Thrive assessed 06/21/25 06/21/25 11:17 Currently or been in a relationship where the following occur: No concerns reported Const General: no acute distress HENMT Head: Yes normal to inspection Face and sinus: Yes normal facial exam Eyes General: appearance normal, both eyes and all related structures Neck Neck: Yes no lymphadenopathy and Yes supple Resp Effort & Inspection: normal respiratory effort Auscultation: clear to auscultation bilaterally Cardio Rhythm: regular rhythm Heart sounds: S1 normal heart sound present and S2 normal heart sound present GI Inspection: Yes normal to inspection Palpation (GI): Soft to palpation Percussion: Yes normal to percussion Auscultation: normal bowel sounds Coding Level of Care Code New Pt Prev Care 18-39yr([id number] Diagnoses Hypothyroid E03.9 Annual physical exam Z00.00 Abdominal pain R10.9 Obesity (BMI 30-39.9) E66.9 Additional Codes DEANA-7 Assessment Billing - DEANA-7 Assessment Tool: DEANA-7 Assessment 60194 ([id number]) PHQ-9 - 60741 - PHQ-9 Billing: Yes ([id number]) Assessment & Plan Assessment & Plan (1) Hypothyroid: Comment: 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 She will return for fasting blood work (3) Abdominal pain: Code(s): R10.9 - Unspecified abdominal pain Category: Medical Plan: For recurrent abdominal pain patient will try Pepcid 20 mg daily for 1 month. (4) Obesity (BMI 30-39.9): Code(s): E66.9 - Obesity, unspecified Category: Medical Plan: Decreasing caloric intake increasing physical activity weight loss discussed with the patient Orders: Orders Comprehensive [place]. Panel Fast Today E03.9 - Hypothyroidism, unspecified, Z00.00 - Encounter for general adult medical examination without abnormal findings UA w Microscopic Today E03.9 - Hypothyroidism, unspecified, Z00.00 - Encounter for general adult medical examination without abnormal findings Urine Culture Today R10.9 - Unspecified abdominal pain Complete Blood Count Auto Diff Today E03.9 - Hypothyroidism, unspecified, Z00.00 - Encounter for general adult medical examination without abnormal findings Lipid Panel Today E03.9 - Hypothyroidism, unspecified, Z00.00 - Encounter for general adult medical examination without abnormal findings TSH reflex Free T4 Today E03.9 - Hypothyroidism, unspecified, Z00.00 - Encounter for general adult medical examination without abnormal findings Medications: New famotidine (Pepcid) 20 mg PO DAILY 30 tabs 0RF
--- OUTSIDE RECORDS SUMMARY | 2025-06-21 13:12 | XMS_ITS | Clinical Summary ---
Author Organization [facility] Address [address] [address] Phone Care Team Providers Care Stockroom Keeper Name Role Phone Pcp, Unknown Primary Care Provider Unavailabl e Allergies No known active allergies Medications benzonatate (TESSALON) 100 MG capsule Take 1 capsule (100 mg total) by mouth 3 (three) times a day as needed for cough. 20 capsule 2 Active Additional Information Patient not taking.Reported on 02/13/2025 ibuprofen-glyce rin 600 mg Kit 30 each, 0 Refill(s), TAKE ONE TABLET ORALLY EVERY 6 HOURS NEEDED FOR FEVER OR PAIN, Refills 0, 09/07/24 1:46:00 PM EST, Partial fill upon patient request if the prescription is for a schedule II opioid drug. 4 Active levothyroxine (SYNTHROID, LEVOTHROID) 137 MCG tablet See Instructions, 1 tablet By Mouth mon to sat and 1/2 pill on sun., # 90 tablet, 3 Refills, Maintenance, 04/09/21 12:32:00 EDT, [facility]/pharmacy #[id number], 167.6, cm, 11/07/20 9:16:00 EST, Height 1 Active traMADoL (ULTRAM) 50 mg tablet 20 each, 0 Refill(s), TAKE ONE TABLET ORALLY EVERY 6 HOURS NEEDED FOR PAIN... INS ??, 0 Refills, 09/07/24 1:46:00 PM EST, Partial fill upon patient request if the prescription is for a schedule II opioid drug. 4 Active ibuprofen (ADVIL,MOTRIN) 600 MG tablet Take 600 mg by mouth every 6 (six) hours as needed for pain (specific location in comments). Active Encounters Date Type Department Care Team Description 05/22/2025 11:59 PM EDT - 05/23/2025 3:07 AM EDT Emergency [facility] [address] [place] [address] Goldy Rogers, DO Discharge Disposition: Home or Self Care from Last 3 Months Social History Tobacco Use Types Packs/Day Years Used Date Smoking Tobacco: Never Smokeless Tobacco: Never Alcohol Use Standard Drinks/Week Comments Not Currently 0 (1 standard drink = 0.6 oz pur e alcohol) Education Answer Date Recorded Are you interested in more education? Not on boyd e 02/14/2023 Are you concerned about learning? Not on file 02/14/2023 No 02/14/2023 No 02/14/2023 Digital Access Answer Date Recorded No 03/17/2023 No 03/17/2023 Reliable internet access at home? Not on file 03/17/2023 Device with a working camera? Not on file Intimate Partner Violence Answer Date R ecorded Are you denied basic needs s uch as food, clothing, or medical care? No 05/22/2025 In the past 12 months have y ou been in a relationship with a person who hurts, threatens, or tries to control you? No 05/22/2025 Are you denied basic needs s uch as food, clothing, or medical care? No 05/22/2025 In the past 12 months have y ou been in a relationship with a person who hurts, threatens, or tries to control you? No 05/22/2025 Comments Unknown Sex and Gender Information Value Date Recorded Sex Assigned at Female 11/10/2021 11:30 PM EST Legal Sex Female 11:16 PM EST Gender Identity Female 11/10/2021 11:30 PM EST Sexual Orientation Straight 05/22/2025 10 :10 PM EDT Last Filed Vital Signs Vital Sign Reading Time Taken Comments Blood Pressure 114/78 05/23/2025 3:04 AM EDT Pulse 75 05/23/2025 3:04 AM EDT Temperature 36.7 C (98.1 F) 05/23/2025 3:04 AM EDT Respiratory Rate 18 05/23/2025 3:04 AM EDT Oxygen Saturation 95% 05/23/2025 3:04 AM EDT Inhaled Oxygen Concentration - - Weight 104.3 kg (230 lb) 05/22/2025 9:05 PM EDT Height 165.1 cm (5' 5 ) 05/22/2025 9:05 PM EDT Body Mass Index 38.27 05/22/2025 9:05 PM EDT Plan of Treatment Health Maintenance Due Date Last Done Comments TSH LEVEL 1985 DEPRESSION SCREENING 1997 HEPATITIS C SCREENING 12/24/2003 HIV ONE-TIME SCREENING (18-6 5 YEARS) 12/24/2003 PAP SMEAR 2006 COVID-19 VACCINE (2023-2 5 season) 2024 12/14/2021, 10/24/2021 SCREENING FOR DIABETES 05/22/2028 05/22/2025 Adult Td,Tdap Booster 11/28/2031 11/28/2021 , 12/17/2016, 07/11/1999 HIB VACCINES Completed 03/18/1988 SMOKING STATUS SCREENING (On ce After 26 Yrs) Completed 02/13/2025 HEPATITIS A VACCINES Aged Out No long er eligible based on patient's age to complete this topic MENINGOCOCCAL VACCINES (ACWY) Aged Out No longer eligible based on patient's age to complete this topic MENINGOCOCCAL VACCINES (B) Aged Out N o longer eligible based on patient's age to complete this topic PNEUMOCOCCAL VACCINES (0-49 years) Aged Out No longer eligible b ased on patient's age to complete this topic Medical Devices Not on file Procedures Procedure Name Priority Date/Time Associated Diagnosis Comments US PELVIS TRANSABDOMINAL PLUS TRANSVAGINAL WITH DOPPLER Routine 05/23/2025 1:38 AM EDT LIPASE STAT 05/22/2025 9:18 PM EDT LFTS (HEPATIC PANEL) STAT 05/22/2025 9:18 PM EDT HCG, SERUM QUALITATIVE STAT 9:18 PM EDT BASIC METABOLIC PANEL STAT 05/22/2025 9:18 PM EDT CBC AND DIFFERENTIAL STAT 05/22/2025 9:18 PM EDT URINE SEDIMENT STAT 05/22/2025 9:09 PM EDT URINALYSIS W/REFLEX URINE CULTURE STAT 05/22/2025 9:09 PM EDT ECG 12-LEAD STAT 05/22/2025 9:07 PM EDT from Last 3 Months Results * US PELVIS TRANSABDOMINAL PLUS TRANSVAGINAL WITH DOPPLER (05/23/2025 1:38 AM EDT) Anatomical Region Laterality Modality Pelvis, Uterus/Adnexa Ultrasound 05/23/2025 2:41 AM EDT Impressions 05/23/2025 2:44 AM EDT Normal left ovary. Uterine fibroid. Narrative 05/23/2025 2:44 AM EDT US PELVIS TRANSABDOMINAL AND TRANSVAGINAL WITH DOPPLER Referring clinician's provided indication for this examination in Epic: Pain; Increased left hemipelvic pain and known cyst concern for torsion TECHNIQUE: Pelvic Ultrasound Transabdominal performed for global imaging of the pelvis. Pelvic Ultrasound Transvaginal performed for detailed imaging of the endometrium and/or adnexa. Color and spectral Doppler examination performed. COMPARISON: None FINDINGS: Uterus: Orientation: axial Myometrium: Normal. Endometrium: 2.5 x 2.2 x 2.2 cm fibroid, with likely submucosal component. Thickness: 6 mm. Right Ovary: Not visualized. Left adnexa: Ovary: Normal Adnexal Doppler: Color and spectral Doppler of the ovary shows normal arterial and venous waveforms. Free fluid: No significant free fluid. Procedure Note Saw Vegas MD, PhD - 05/23/2025 US PELVIS TRANSABDOMINAL AND TRANSVAGINAL WITH DOPPLER Referring clinician's provided indication for this examination in Epic:Pain; Increased left hemipelvic pain and known cyst concern for torsion TECHNIQUE: Pelvic Ultrasound Transabdominal performed for global imagingof the pelvis. Pelvic Ultrasound Transvaginal performed for detailedimaging of the endometrium and/or adnexa. Color and spectral Dopplerexamination performed. COMPARISON: None FINDINGS: Uterus: Orientation: axial Myometrium: Normal. Endometrium: 2.5 x 2.2 x 2.2 cm fibroid, with likely submucosalcomponent. Thickness: 6 mm. Right Ovary: Not visualized. Left adnexa: Ovary: Normal Adnexal Doppler: Color and spectral Doppler of the ovary shows normalarterial and venous waveforms. Free fluid: No significant free fluid. IMPRESSION: Normal left ovary. Uterine fibroid. us Goldy Rogers DO IMG US PELVIS Final Result * HCG, serum qualitative (05/22/2025 9:18 PM EDT) HCG, QUALITATIVE Negative Negative IU/L [facility] Blood 05/22/2025 9:18 PM EDT 05/22/2025 9:30 PM EDT us Tk Broderick MD LAB BLOOD ORDERABLES Final Result [address] [address] * LFTs (hepatic panel) (05/22/2025 9:18 PM EDT) ALKALINE PHOSPHATASE 99 39 - 117 U/L [facility] TOTAL BILIRUBIN <0.2 0.0 - 1.2 mg/dL [facility] DIRECT BILIRUBIN <0.1 0.0 - 0.2 mg/dL [facility] Bilirubin (Indirect) NOT CALCULATED 0 - 1.5 mg/dL [facility] AST 17 0 - 37 U/L [facility] ALT 9 0 - 40 U/L [facility] TOTAL PROTEIN 7.6 6.5 - 8.0 g/dL [facility] ALBUMIN 4.3 3.9 - 4.8 g/dL [facility] GLOBULIN 3.3 1 - 4.8 g/dL [facility] A/G Ratio 1.30 1.00 - 4.80 RATIO [facility] Blood 05/22/2025 9:18 PM EDT 05/22/2025 9:30 PM EDT us Tk Broderick MD LAB BLOOD ORDERABLES Final Result [facility] [address] [place] [address] * (ABNORMAL) CBC and differential (05/22/2025 9:18 PM EDT) WBC 12.20(H) 4.00 - 11.00 K/uL [facility] RBC 4.37 4.00 - 5.20 M/uL [facility] HGB 12.6 12.0 - 16.0 g/dL [facility] HCT 38.5 36.0 - 46.0 % [facility] PLT 346 150 - 450 K/uL [facility] MCV 88.1 80.0 - 100.0 fL [facility] MCH 28.8 27.0 - 31.0 pg [facility] MCHC 32.7 32.0 - 36.0 g/dL [facility] RDW 13.3 11.5 - 14.5 % [facility] MPV 9.7 8.4 - 12.0 fL [facility] NRBC 0.00 0.00 /100 WBCs [facility] ABSOLUTE NRBC 0.00 0.00 K/uL [facility] DIFF METHOD Auto [facility] NEUTS 60.6 48.0 - 76.0 % [facility] LYMPHS 26.7 18.0 - 41.0 % [facility] MONOS 7.1 4.0 - 11.0 % [facility] EOS 4.5 0.0 - 5.0 % [facility] BASOS 0.5 0.0 - 1.5 % [facility] Granulocytes, immature (%) 0.6 0.0 - 0.9 % [facility] ABSOLUTE NEUTS 7.39 1.92 - 7.60 K/uL [facility] ABSOLUTE LYMPHS 3.26 0.72 - 4.10 K/uL [facility] ABSOLUTE MONOS 0.87 0.16 - 1.10 K/uL [facility] ABSOLUTE EOS 0.55(H) 0.00 - 0.50 K/uL [facility] ABSOLUTE BASOS 0.06 0.00 - 0.15 K/uL [facility] Granulocytes, immature 0.07 0.00 - 0.09 K/uL [facility] Blood 05/22/2025 9:18 PM EDT 05/22/2025 9:30 PM EDT Tk Broderick MD LAB BLOOD ORDERABLES Final Result Performing Organization Address City/[facility]/ZIP Co de Phone Number [address] [address] * Lipase (05/22/2025 9:18 PM EDT) LIPASE 27 16 - 63 U/L [facility] Blood 05/22/2025 9:18 PM EDT 05/22/2025 9:30 PM EDT Tk Broderick MD LAB BLOOD ORDERABLES Final Result Performing Organization Address [facility]/ZIP Co de Phone Number [address] [address] * (ABNORMAL) Basic metabolic panel (05/22/2025 9:18 PM EDT) SODIUM 141 133 - 146 mmol/L [facility] CHLORIDE 102 96 - 108 mmol/L [facility] POTASSIUM 3.8 3.3 - 5.1 mmol/L [facility] CO2 25 21 - 35 mmol/L [facility] BUN 10 6 - 19 mg/dL [facility] CREATININE 0.80 0.5 - 1.5 mg/dL [facility] GLUCOSE 107(H) 70 - 99 mg/dL [facility] CALCIUM 9.8 8.4 - 10.3 mg/dL [facility] EGFR 96 >59 mL/min/1.7 3m2 [facility] Comment:Estimated glomerular filtration rate calculated using the CKD-EPI refit equation. ANION GAP 18 10 - 20 mmol/L [facility] Blood 05/22/2025 9:18 PM EDT 05/22/2025 9:30 PM EDT us Tk Broderick MD LAB BLOOD ORDERABLES Final Result Performing Organization Address [facility] Co de Phone Number [address] [address] * (ABNORMAL) Urinalysis w/reflex Urine Culture (05/22/2025 9:09 PM EDT) COLOR Yellow Yellow [facility] CLARITY Clear [facility] GLUCOSE Negative Negative [facility] BILI Negative Negative [facility] KETONES Negative Negative [facility] SPECIFIC GRAVITY 1.010 1.005 - 1.030 [facility] BLOOD Negative Negative [facility] PH 6.0 5.0 - 8.0 [facility] Protein-UA Negative Negative [facility] NITRITE Negative Negative [facility] Leukocyte esterase, ur Trace(A) Negative [facility] Urine (Urine) 05/22/2025 9:0 9 PM EDT 05/23/2025 12:48 AM EDT us Tk Broderick MD URINE ORDERABLES Final Resu lt Performing Organization Address [facility] Co de Phone Number [address] [address] * (ABNORMAL) Urine sediment (05/22/2025 9:09 PM EDT) WBC 0-4(A) NONE SEEN /hpf [facility] RBC NONE SEEN NONE SEEN /hpf [facility] URINE EPITHELIAL 0-4(A) NONE SEEN [facility] MUCUS NONE SEEN NONE SEEN /hpf [facility] BACTERIA NONE SEEN NONE SEEN /hpf [facility] 05/22/2025 9:09 PM EDT 05/23/2025 12:48 AM EDT us Tk Broderick MD URINE ORDERABLES Final Resu lt [facility] [address] [place] [address] * ECG 12-LEAD (05/22/2025 9:07 PM EDT) Ventricular Rate EKG/MIN 75 BPM [facility] Atrial Rate 75 BPM [facility] NV Interval 178 ms [facility] QRS Duration 80 ms [facility] QT Interval 386 ms [facility] QTC Interval 431 ms [facility] P [place] 33 degrees [facility] R Wave [place] 35 degrees [facility] T Wave [place] 33 degrees [facility] 05/22/2025 9:07 PM EDT 05/23/2025 8:46 AM EDT Narrative [facility] - 05/23/2025 8:46 AM EDT Normal sinus rhythm Normal ECG When compared with ECG of 10-Nov-2021 23:38, No significant change was found Confirmed by Pardeep Packer ([id number]) on 05/23/2025 8:46:04 AM us Tk Broderick MD ECG ORDERABLES Final Resul t [facility] from Last 3 Months Insurance [facility] [place] [address] [place] [address] [address] [place] [address] [employer] [facility] [place] [address] [place] [address] ACO [facility] [place] [address] [place] [address] ACO [facility] ACO Care Teams Stockroom Keeper Relationship Specialty Start Date End Date Pcp, Unknown PCP - General 02/13/25 Additional Source Comments The information contained in this document represents components of the legal health record. It is not the complete legal health record.[facility]
== END 2025-06-21 12:55 | disposition home or self-care (01) ==
LOC: HO.HMCC 10:59
PROVIDERS: Visit Provider Internal Medicine
DX: Z00.00 Encounter for general adult medical examination without abnormal findings (principal); E03.9 Hypothyroidism, unspecified; E66.9 Obesity, unspecified; Z68.39 Body mass index [BMI] 39.0-39.9, adult; R10.9 Unspecified abdominal pain